=== PATIENT | male | born 1960 | race Caucasian/White ===

== ENCOUNTER 2024-06-17 20:38 | Inpatient (IN) ==
--- NOTE | 2024-06-17 21:15 | Emergency Department Note ---
Impression & Plan Acute respiratory failure with hypoxia, COPD exacerbation, Rhinovirus infection ED Provider Note NAME: ALYSHA [id number] LIONEL AGE: 63 SEX: M : 1960 ARRIVES VIA: Ambulance INFORMANT: Patient ED PROVIDER(S): Kelton Mendez MD CHIEF COMPLAINT: Acute respiratory distress, hypoxia. PLAN: Disposition: Admit MEDICAL DECISION MAKING: The patient is a pleasant 63-year-old gentleman, current fci inmate at [facility] with a past medical history of COPD who presents to the emergency department via EMS for acute respiratory failure which became acutely worse today in the setting of having worsening cough and congestion over the past several weeks. Patient reports bringing up thick discolored sputum intermittently. Denies any fevers. He denies any nausea, vomiting or diarrhea. Per EMS report on medical command with this provider, the patient was in acute respiratory distress with labored breathing with diffuse wheezes bilaterally and was noted to be in the mid 80s on 100% nonrebreather. He had been given nebulizer treatments repeatedly and Solu-Medrol but required placement on CPAP by EMS for stabilization. Upon arrival the patient was transitioned to Bipap and continued to have improved work of breathing. On evaluation the patient is uncomfortable no acute distress, afebrile with heart in the 110s and vital signs otherwise stable on BPAP. He appears clinically dry. He has improved air movement bilaterally compared to EMS report. Scant intermittent wheezes are noted. EKG without overt acute ischemia. CXR negative for acute cardiopulmonary process per my personal preliminary review/interpretation. WBC, H/H and platelets within normal limits. Chemistry without metabolic acidosis. Electrolytes and LFTs without significant abnormality. HS troponin 3.5, within normal limits. Procalcitonin is not elevated. CTA of the chest was performed and report is pending. Respiratory BioFire was pending. Given the patient's acute respiratory failure requiring BiPAP due to suspected COPD flare the patient does agree with plan for admission for further management. Case was discussed with Dr. Medrano, [facility] hospitalist, who will evaluate the patient for admission. CTA of the chest was subsequently negative for PE. Bronchial wall thickening and severe pulmonary edema as described. Question basilar subpleural focal atelectasis/consolidation is noted. Respiratory BioFire was positive for enterovirus/rhinovirus. Further management per admitting team. Triage Nursing notes reviewed and agree them. Prior/external medical records reviewed Vital Signs: reviewed Differential diagnosis: Reactive airway disease, pneumonia, pneumothorax, COPD, CHF, infections, cardiac ischemia, pulmonary embolism, musculoskeletal, gastrointestinal, as well as other pathologies. ER treatment provided: See below. Diagnostics interpreted by me: ECG: Sinus tachycardia, 112 bpm, no ectopy, no overt ST elevation or depression, QTc 434, QRS 68. Cardiac Monitoring: An order for continuous cardiac monitoring was placed and demonstrated Sinus tachycardia, 112 bpm, no ectop Laboratory studies: See below Imaging studies: See below Consultation(s): Case was discussed with Dr. Medrano, [facility] hospitalist, who will evaluate the patient for admission. HPI: The patient is a pleasant 63-year-old gentleman, current fci inmate at [facility] with a past medical history of COPD who presents to the emergency department via EMS for acute respiratory failure which became acutely worse today in the setting of having worsening cough and congestion over the past several weeks. Patient reports bringing up thick discolored sputum intermittently. Denies any fevers. He denies any nausea, vomiting or diarrhea. Per EMS report on medical command with this provider, the patient was in acute respiratory distress with labored breathing with diffuse wheezes bilaterally and was noted to be in the mid 80s on 100% nonrebreather. He had been given nebulizer treatments repeatedly and Solu-Medrol but required placement on CPAP by EMS for stabilization. Upon arrival the patient was transitioned to Bipap and continued to have improved work of breathing. ROS: See above HPI for pertinent positives & negatives. A total of 10 systems reviewed and were otherwise negative. VITALS:See Below PHYSICAL EXAMINATION: GENERAL: Awake, alert, uncomfortable appearing, in no distress HENT: Normocephalic, atraumatic. Oropharynx with dry mucous membranes and otherwise unremarkable. EYES: Normal conjunctiva. Sclera non-icteric. NECK: Supple. No nuchal rigidity. FROM. No JVD. RESPIRATORY: Intermittent wheezes bilaterally and otherwise clear to auscultation. CARDIAC: Tachycardic rate, normal rhythm. Extremities warm and well perfused. Pulses equal. ABDOMEN: Soft, non-distended. No tenderness to palpation. No rebound or guarding. No masses. MUSCULOSKELETAL: Chest examination reveals no tenderness. The back is symmetrical on inspection without obvious abnormality. There is no CVA tenderness to palpation. No joint edema. LOWER EXTREMITIES: Calves are equal size bilaterally and non-tender. No edema. No discoloration. NEURO: Normal sensorium. No sensory or motor deficits noted. SKIN: No rash or jaundice noted. ED COURSE: Critical Care: I have personally spent greater than 45 minutes of critical care time in the direct management of this patient. This includes bedside care, interpretation of diagnostic studies, and testing, discussion with consultants, patient, and family members, and other required patient management activities. This 45 minutes is in excess of all separately billable procedures. Kelton Mendez MD Past Med/Surg History Problem List (Updated 06/18/24 @ 16:25 by Kelton Mendez MD) Rhinovirus infection (Acute) Acute respiratory failure with hypoxia (Acute) COPD exacerbation (Acute) Social History Smoking Status: Former smoker Tobacco Type: Cigarettes Second Hand Exposure: No; Do You Dip or Chew Tobacco: No; Tobacco Cessation Education Requested by Patient: No Hx Alcohol Use: No Hx Substance Use: No Preferred Language: Sinhala Communication Ability: Unable Evp And Chief Operating Officer Required: No Beliefs That Will Affect Care: None Current Living Situation: Other Current Living Situation Comment: [facility] Other Information That Helps Us Care for You: No Feels Safe at Home: Yes Safety Concerns: Feels Safe At This Time Assistive Devices: Denture - Upper and Glasses Allergies Allergies Allergy/AdvReac Type Severity Reaction Status Date / Time haloperidol [From Haldol] Allergy Difficulty Verified 11/13/23 02:34 Breathing penicillin G benzathine Allergy Unknown Verified 11/13/23 02:52 sodium chloride Allergy Unknown Verified 11/13/23 02:52 [From Cameron Nasal] Home Meds Home Medications Medication Instructions Recorded Confirmed albuterol sulfate 90 mcg/actuation 2 puff inhalation QID PRN 11/13/23 06/18/24 aerosol inhaler Shortness Of Breath amlodipine 10 mg tablet 10 mg PO HS 11/13/23 06/18/24 aspirin 81 mg chewable tablet 81 mg PO HS 11/13/23 06/18/24 fluticasone 250 mcg-salmeterol 50 1 inh inhalation BID 11/13/23 06/18/24 mcg/dose blistr powdr for inhalation hydrochlorothiazide 25 mg tablet 25 mg PO QPM 11/13/23 06/18/24 ropinirole 1 mg tablet 1 mg PO HS 11/13/23 06/18/24 umeclidinium 62.5 mcg/actuation 1 inh inhalation DAILY 11/13/23 06/18/24 blister powder for inhalation (Incruse Ellipta) amantadine HCl 100 mg capsule 100 mg PO HS 06/18/24 06/18/24 azithromycin 250 mg tablet 250 mg PO DAILY 06/18/24 06/18/24 citalopram 10 mg tablet 10 mg PO HS 06/18/24 06/18/24 prednisone 10 mg tablet 50 mg PO DAILY 06/18/24 06/18/24 Results & Data (ED) Vital Signs Vital Signs - 24 hr 06/17/24 20:56 06/17/24 21:00 06/17/24 21:03 Temperature Temperature Source Pulse Rate 114 H 115 H Pulse Rate [Left] Pulse Rate from SpO2 Sensor 240 H Pulse Rhythm Pulse Rhythm [Left] Pulse Strength [Left] Respiratory Rate 20 Respiratory Effort / Characteristics Accessory Muscle Use Respiratory Depth Respiratory Pattern Blood Pressure 114/87 Blood Pressure [Right Arm] Blood Pressure Mean 96 Blood Pressure Mean [Right Arm] Blood Pressure Position [Right Arm] Pulse Oximetry 93 Oxygen Delivery Method Fraction of Inspired Oxygen Sepsis Recent Fever Within 48 Hours Sepsis New/Unexplained Change in Mental Status Sepsis Action Taken by Nursing 06/17/24 21:03 06/17/24 21:06 06/17/24 21:12 Temperature 36.6 C Temperature Source Axillary Pulse Rate 115 H Pulse Rate [Left] Pulse Rate from SpO2 Sensor Pulse Rhythm Pulse Rhythm [Left] Pulse Strength [Left] Respiratory Rate 29 H 18 Respiratory Effort / Characteristics Spontaneous Accessory Muscle Use Spontaneous Respiratory Depth Shallow Normal Respiratory Pattern Regular Blood Pressure 114/87 Blood Pressure [Right Arm] Blood Pressure Mean 96 Blood Pressure Mean [Right Arm] Blood Pressure Position [Right Arm] Pulse Oximetry 97 95 95 Oxygen Delivery Method CPAP CPAP Fraction of Inspired Oxygen 50 Sepsis Recent Fever Within 48 Hours No Sepsis New/Unexplained Change in Mental Status No Sepsis Action Taken by Nursing Physician Notified 06/17/24 21:18 06/17/24 21:23 06/17/24 21:27 Temperature Temperature Source Pulse Rate 113 H 112 H Pulse Rate [Left] Pulse Rate from SpO2 Sensor 230 H 227 H Pulse Rhythm Pulse Rhythm [Left] Pulse Strength [Left] Respiratory Rate 15 16 Respiratory Effort / Characteristics Respiratory Depth Respiratory Pattern Blood Pressure 114/69 120/95 120/95 Blood Pressure [Right Arm] Blood Pressure Mean 84 107 103 Blood Pressure Mean [Right Arm] Blood Pressure Position [Right Arm] Pulse Oximetry 97 96 Oxygen Delivery Method Fraction of Inspired Oxygen Sepsis Recent Fever Within 48 Hours Sepsis New/Unexplained Change in Mental Status Sepsis Action Taken by Nursing 06/17/24 21:30 06/17/24 22:00 06/17/24 22:24 Temperature Temperature Source Pulse Rate 107 H 107 H Pulse Rate [Left] Pulse Rate from SpO2 Sensor 138 H 106 H Pulse Rhythm Pulse Rhythm [Left] Pulse Strength [Left] Respiratory Rate 12 15 Respiratory Effort / Characteristics Respiratory Depth Respiratory Pattern Blood Pressure 125/94 129/97 134/101 H Blood Pressure [Right Arm] Blood Pressure Mean 99 107 112 Blood Pressure Mean [Right Arm] Blood Pressure Position [Right Arm] Pulse Oximetry 93 98 Oxygen Delivery Method Fraction of Inspired Oxygen Sepsis Recent Fever Within 48 Hours Sepsis New/Unexplained Change in Mental Status Sepsis Action Taken by Nursing 06/17/24 22:30 06/17/24 22:30 06/17/24 22:30 Temperature Temperature Source Pulse Rate Pulse Rate [Left] Pulse Rate from SpO2 Sensor Pulse Rhythm Pulse Rhythm [Left] Pulse Strength [Left] Respiratory Rate Respiratory Effort / Characteristics Respiratory Depth Respiratory Pattern Blood Pressure 137/107 H 137/107 H 137/107 H Blood Pressure [Right Arm] Blood Pressure Mean 113 113 113 Blood Pressure Mean [Right Arm] Blood Pressure Position [Right Arm] Pulse Oximetry Oxygen Delivery Method Fraction of Inspired Oxygen Sepsis Recent Fever Within 48 Hours Sepsis New/Unexplained Change in Mental Status Sepsis Action Taken by Nursing 06/17/24 22:54 06/17/24 23:03 06/17/24 23:30 Temperature Temperature Source Pulse Rate 98 H 97 H Pulse Rate [Left] 98 H Pulse Rate from SpO2 Sensor 97 H 98 H Pulse Rhythm Pulse Rhythm [Left] Regular Pulse Strength [Left] Normal Respiratory Rate 17 19 24 Respiratory Effort / Characteristics Non-Labored Spontaneous Respiratory Depth Normal Respiratory Pattern Regular Blood Pressure 142/102 H 135/102 H Blood Pressure [Right Arm] 136/97 Blood Pressure Mean 115 113 Blood Pressure Mean [Right Arm] 110 Blood Pressure Position [Right Arm] Pulse Oximetry 98 95 96 Oxygen Delivery Method BiPAP Fraction of Inspired Oxygen Sepsis Recent Fever Within 48 Hours Sepsis New/Unexplained Change in Mental Status Sepsis Action Taken by Nursing 06/17/24 23:30 06/18/24 00:00 06/18/24 00:57 Temperature Temperature Source Pulse Rate 98 H 93 H Pulse Rate [Left] 95 H Pulse Rate from SpO2 Sensor Pulse Rhythm Regular Pulse Rhythm [Left] Regular Pulse Strength [Left] Normal Respiratory Rate 20 Respiratory Effort / Characteristics Non-Labored Spontaneous Respiratory Depth Normal Respiratory Pattern Regular Blood Pressure Blood Pressure [Right Arm] 130/96 Blood Pressure Mean Blood Pressure Mean [Right Arm] 107 Blood Pressure Position [Right Arm] Lying Pulse Oximetry 96 97 Oxygen Delivery Method BiPAP BiPAP Fraction of Inspired Oxygen Sepsis Recent Fever Within 48 Hours Sepsis New/Unexplained Change in Mental Status Sepsis Action Taken by Nursing 06/18/24 01:00 Temperature Temperature Source Pulse Rate Pulse Rate [Left] 92 H Pulse Rate from SpO2 Sensor Pulse Rhythm Pulse Rhythm [Left] Regular Pulse Strength [Left] Normal Respiratory Rate 20 Respiratory Effort / Characteristics Non-Labored Spontaneous Respiratory Depth Normal Respiratory Pattern Regular Blood Pressure Blood Pressure [Right Arm] 131/96 Blood Pressure Mean Blood Pressure Mean [Right Arm] 107 Blood Pressure Position [Right Arm] Lying Pulse Oximetry 95 Oxygen Delivery Method BiPAP Fraction of Inspired Oxygen Sepsis Recent Fever Within 48 Hours Sepsis New/Unexplained Change in Mental Status Sepsis Action Taken by Nursing Laboratory Data Attestation: I reviewed the patient's lab results. 06/18/24 05:35 06/18/24 05:35 Lab Results 06/17/24 06/17/24 06/17/24 Range/Units 20:50 23:31 23:41 WBC 9.31 (4.8-10.8) K/ul RBC 5.02 (4.70-6.10) M/uL Hgb 16.0 (14.0-18.0) g/dl Hct 46.5 (42.0-52.0) % MCV 92.6 (80.0-100.0) fL MCH 31.9 (25.0-34.0) pg MCHC 34.4 (32.0-36.0) g/dL RDW Std Deviation 41.6 (36.4-46.3) fL RDW Coeff of Oumou 12.1 (11.5-14.5) % Plt Count 203 (130-400) K/uL MPV 9.4 (9.4-12.4) fL Immature Gran % (Auto) 0.4 % Neut % (Auto) 74.6 % Lymph % (Auto) 10.3 % Garland % (Auto) 5.3 % Eos % (Auto) 8.4 % Baso % (Auto) 1.0 % Neut # (Auto) 6.95 H (1.40-6.50) K/uL Lymph # (Auto) 0.96 L (1.20-3.40) K/uL Garland # (Auto) 0.49 (0.11-0.59) K/uL Eos # (Auto) 0.78 H (0.00-0.50) K/uL Baso # (Auto) 0.09 (0.00-0.20) K/uL Immature Gran # (Auto) 0.04 (0.01-0.20) K/uL VBG pH 7.37 (7.36-7.41) VBG pCO2 44 (38-50) mmHg VBG pO2 57 mmHg VBG HCO3 25 mmol/L VBG O2 Saturation 88.4 % VBG Base Excess -0.2 mEq/L Sodium 139 (136-145) mmol/L Potassium 3.7 (3.5-5.1) mmol/L Chloride 104 (98-107) mmol/L Carbon Dioxide 25 (21-32) mmol/L Anion Gap 10 (3-11) BUN 21 (6-23) mg/dl Creatinine 1.12 (0.6-1.4) mg/dl Est Cr Clr Drug Dosing 79.6 ml/min Est GFR ( Amer) 80.0 ml/min Est GFR (Non-Af Amer) 69.0 ml/min BUN/Creatinine Ratio 18.8 (10-20) Glucose 204 H (70-99(Fasting)) mg/dl Lactate 2.5 H* (0.4-2.0) mmol/L Calcium 10.1 (8.6-10.3) mg/dl Magnesium 1.9 (1.7-2.4) mg/dl Total Bilirubin 0.8 (0.2-1.0) mg/dl Direct Bilirubin 0.2 (0-0.2) mg/dl AST 11 L (13-39) U/L ALT 10 (7-52) U/L Alkaline Phosphatase 90 (34-104) U/L Troponin I High Sens 3.5 (0-20) pg/ml Total Protein 6.7 (6.0-8.3) gm/dl Albumin 4.2 (3.4-5.0) gm/dl Procalcitonin < 0.02 (0-0.5) ng/ml Adenovirus (PCR) Not Detected (NotDetected) B. pertussis DNA (PCR) Not Detected (NotDetected) B.parapertussis DNA PCR Not Detected (NotDetected) C. pneumoniae DNA (PCR) Not Detected (NotDetected) Coronavirus OC43 (PCR) Not Detected (NotDetected) Coronavirus HKU1 (PCR) Not Detected (NotDetected) Coronavirus 229E (PCR) Not Detected (NotDetected) SARS-CoV-2 (PCR) Not Detected (NotDetected) Coronavirus NL63 (PCR) Not Detected (NotDetected) Human Metapneumovir PCR Not Detected (NotDetected) Influenza Type A (PCR) Not Detected (NotDetected) Influenza Type B (PCR) Not Detected (NotDetected) M. pneumoniae (PCR) Not Detected (NotDetected) Parainfluenza 1 (PCR) Not Detected (NotDetected) Parainfluenza 2 (PCR) Not Detected (NotDetected) Parainfluenza 3 (PCR) Not Detected (NotDetected) Parainfluenza 4 (PCR) Not Detected (NotDetected) RSV (PCR) Not Detected (NotDetected) Entero/Rhino (PCR) DETECTED A (NotDetected) Administered Medications Albuterol (Albut/Ipratrop 3mg/0.5mg Neb 3 Ml Vial) 3 ml NEB QIDR [facility]; Protocol Stop: 07/18/24 06:59 Last Admin: 06/18/24 15:37 Dose: 3 ml Documented By: Admin: 06/18/24 11:00 Dose: 3 ml Documented By: Admin: 06/18/24 07:25 Dose: 3 ml Documented By: EM Azithromycin (Azithromycin 250 Mg Tab) 250 mg PO DAILY [facility] Stop: 06/25/24 08:59 Last Admin: 06/18/24 10:29 Dose: 250 mg Documented By: AM Enoxaparin Sodium (Enoxaparin Inj 40 Mg/0.4 Ml Syr) 40 mg SQ Q24H PATY Stop: 07/18/24 08:59 Last Admin: 06/18/24 10:28 Dose: 40 mg Documented By: AM Fluticasone/Vilanterol (Fluticasone/Vilanterol 100/25mcg 14 Puffs/Inhaler) 1 puffs INH DAILY PATY Stop: 07/18/24 08:59 Last Admin: 06/18/24 10:30 Dose: 1 puffs Documented By: AM Methylprednisolone 40 mg/ (Syringe) 0.64 mls @ 1.5 mls/min IV Q8H PATY Stop: 07/18/24 05:59 Last Admin: 06/18/24 14:31 Dose: 1.5 mls/min Documented By: Admin: 06/18/24 05:51 Dose: 1.5 mls/min Documented By: TAHMINA Thiamine HCl (Thiamine Hcl 100 Mg Tab) 200 mg PO QAM PATY Stop: 06/24/24 09:01 Last Admin: 06/18/24 10:29 Dose: 200 mg Documented By: SOPHIA Umeclidinium Ballinger (Umeclidinium Ballinger 62.5mcg/Blister 7 Puffs/Inhaler) 1 puffs INH DAILY PATY Stop: 07/18/24 08:59 Last Admin: 06/18/24 10:30 Dose: 1 puffs Documented By: AM Discontinued Medications Albuterol (Albut/Ipratrop 3mg/0.5mg Neb 3 Ml Vial) 3 ml NEB NOW STA; Protocol Stop: 06/18/24 03:34 Last Admin: 06/18/24 03:59 Dose: 3 ml Documented By: TED Sodium Chloride (Nss) 1,000 mls @ 999 mls/hr IV .Q1H1M ONE Stop: 06/17/24 22:12 Last Infusion: 06/17/24 23:23 Dose: Infused Documented By: Admin: 06/17/24 21:34 Dose: 999 mls/hr Documented By: ANI Sodium Chloride (Nss) 1,000 mls @ 100 mls/hr IV .Q10H PATY Stop: 06/18/24 13:22 Last Infusion: 06/18/24 14:03 Dose: Infused Documented By: Admin: 06/18/24 03:42 Dose: 100 mls/hr Documented By: TAHMINA Ioversol (Optiray 320 125ml) 125 ml IV ONCE ONE Stop: 06/17/24 23:21 Last Admin: 06/17/24 23:20 Dose: 118 ml Documented By: EMILIANO Imaging Data Radiologist's Impression: Chest X-Ray 06/17/24 21:12 XR chest 1V portable HISTORY: Sepsis COMPARISON: Chest 11/13/2023. FINDINGS: No pneumothorax. No pleural effusions. The heart is normal in size. There are old, healed bilateral rib fractures. No evidence for pulmonary edema. Right basilar linear densities favor subsegmental atelectasis or scarring. Otherwise, no focal lung consolidations to suggest a pneumonia. Mild emphysema again noted. IMPRESSION: No acute process. ACT 112: Negative or not required by law. Electronically signed by: Jose Alberto Forde M.D. 06/18/2024 7:42 AM Chest CTA 06/17/24 21:12 Exam(s): CTA CHEST IV Amt: 118 ML OPTIRAY 320 EXAM: CT Angiography Chest With Intravenous Contrast CLINICAL HISTORY: Reason for exam: sob, copd, hypoxia, r/o PE. TECHNIQUE: Axial computed tomographic angiography images of the chest with intravenous contrast. CTDI is 19 mGy and DLP is 736 mGy-cm. Automated exposure control was utilized for the study. A dose lowering technique was utilized adhering to the principles of ALARA. MIP reconstructed images were created and reviewed. COMPARISON: CTA chest: 11/13/2023 FINDINGS: Diagnostic sensitivity of the exam is reduced by motion artifact. Pulmonary arteries: No abnormal intraluminal filling defects/pulmonary embolism identified within the opacified pulmonary arteries. Aorta: No acute findings. An ectatic ascending aorta: 4.0 cm in diameter. Atherosclerotic tortuosity Lungs: Central airways are patent. Bilateral diffuse bronchial wall thickening. Moderately severe pulmonary emphysema. Posteriorly right lower lung lobe subpleural mild atelectatic changes. No mass. No consolidation. Pleural space: Unremarkable. No significant effusion. No pneumothorax. Heart: Unremarkable. No cardiomegaly. No significant pericardial effusion. No evidence of RV dysfunction. Bones/joints: No acute fracture. No dislocation. Posteriorly right 10th rib old displaced fracture with associated pleural thickening. Degenerative spondylitic changes. Soft tissues: Unremarkable. Patulous dilated esophagus. A small hiatal hernia. Lymph nodes: Unremarkable. No enlarged lymph nodes. Other findings: Bilateral LT>RT polycystic kidney disease.. IMPRESSION: No evidence of pulmonary embolism. An ectatic ascending aorta. No aortic dissection. Bilateral bronchial wall thickening. Moderately severe pulmonary emphysema. Posteriorly right basilar subpleural focal atelectasis/consolidation. . Electronically signed by: Opal Deluna MD, DABR 06/18/24 01:09 AM Chest X-Ray 06/17/24 21:12 XR chest 1V portable HISTORY: Sepsis COMPARISON: Chest 11/13/2023. FINDINGS: No pneumothorax. No pleural effusions. The heart is normal in size. There are old, healed bilateral rib fractures. No evidence for pulmonary edema. Right basilar linear densities favor subsegmental atelectasis or scarring. Otherwise, no focal lung consolidations to suggest a pneumonia. Mild emphysema again noted. IMPRESSION: No acute process. ACT 112: Negative or not required by law. Electronically signed by: Jose Alberto Forde M.D. 06/18/2024 7:42 AM Discharge Plan Visit Data Chief Complaint: Respiratory Problems Stated Complaint: Respiratory Distress ED Provider: Kelton Mendez Discharge Problem: Acute respiratory failure with hypoxia, COPD exacerbation, Rhinovirus infection Patient Disposition: Admitted As Inpatient Discharge Instructions Interventions: ED Discharge Assessment Last Done: 06/18/24 02:53
[2024-06-17 21:33] LABS: Basophils # (auto) 0.09 K/uL (0.00-0.20); Eosinophils # (auto) 0.78 K/uL (0.00-0.50); Eosinophils % (auto) 8.4 %; Hematocrit (blood only) 46.5 % (42.0-52.0); Immature Granulocytes # (auto) 0.04 K/uL (0.01-0.20); Immature Granulocytes % (auto) 0.4 %; Lymphocytes # (auto) 0.96 K/uL (1.20-3.40); Lymphocytes % (auto) 10.3 %; Mean Corpuscular Hemoglobin 31.9 pg (25.0-34.0); Mean Corpuscular Hgb Conc 34.4 g/dL (32.0-36.0); Mean Corpuscular Volume 92.6 fL (80.0-100.0); Mean Platelet Volume 9.4 fL (9.4-12.4); Monocytes # (auto) 0.49 K/uL (0.11-0.59); Monocytes % (auto) 5.3 %; Neutrophils # (auto) 6.95 K/uL (1.40-6.50); Neutrophils % (auto) 74.6 %; Platelet Count 203 K/uL (130-400); RDW Coefficient of Variation 12.1 % (11.5-14.5); RDW Standard Deviation 41.6 fL (36.4-46.3); Red Blood Count 5.02 M/uL (4.70-6.10); White Blood Count 9.31 K/ul (4.8-10.8)
[2024-06-17] MEDS: SODIUM CHLORIDE 0.9% 1,000 ML IV ONE (21:34)
[2024-06-17 21:43] LABS: Base Excess VBG -0.2 mEq/L; HCO3 VBG 25 mmol/L; Oxygen Saturation VBG 88.4 %; PCO2 VBG 44 mmHg (38-50); PO2 VBG 57 mmHg; pH VBG 7.37 (7.36-7.41)
[2024-06-17 21:51] LABS: Albumin Level 4.2 gm/dl (3.4-5.0); BUN Creatinine Ratio 18.8 (10-20); Bilirubin Direct 0.2 mg/dl (0-0.2); Bilirubin,Total 0.8 mg/dl (0.2-1.0); Calcium 10.1 mg/dl (8.6-10.3); Creatinine Clr Calc Pharmacy 79.6 ml/min; Magnesium 1.9 mg/dl (1.7-2.4); Potassium 3.7 mmol/L (3.5-5.1); Total Protein 6.7 gm/dl (6.0-8.3)
[2024-06-17 21:58] LABS: Troponin I High Sensitivity 3.5 pg/ml (0-20)
[2024-06-17] MEDS: OPTIRAY 320 125ml IV ONE (23:20)
--- NOTE | 2024-06-18 01:11 | CT Scan Report ---
Exam(s): CTA CHEST IV Amt: 118 ML OPTIRAY 320 EXAM: CT Angiography Chest With Intravenous Contrast CLINICAL HISTORY: Reason for exam: sob, copd, hypoxia, r/o PE. TECHNIQUE: Axial computed tomographic angiography images of the chest with intravenous contrast. CTDI is 19 mGy and DLP is 736 mGy-cm. Automated exposure control was utilized for the study. A dose lowering technique was utilized adhering to the principles of ALARA. MIP reconstructed images were created and reviewed. COMPARISON: CTA chest: 11/13/2023 FINDINGS: Diagnostic sensitivity of the exam is reduced by motion artifact. Pulmonary arteries: No abnormal intraluminal filling defects/pulmonary embolism identified within the opacified pulmonary arteries. Aorta: No acute findings. An ectatic ascending aorta: 4.0 cm in diameter. Atherosclerotic tortuosity Lungs: Central airways are patent. Bilateral diffuse bronchial wall thickening. Moderately severe pulmonary emphysema. Posteriorly right lower lung lobe subpleural mild atelectatic changes. No mass. No consolidation. Pleural space: Unremarkable. No significant effusion. No pneumothorax. Heart: Unremarkable. No cardiomegaly. No significant pericardial effusion. No evidence of RV dysfunction. Bones/joints: No acute fracture. No dislocation. Posteriorly right 10th rib old displaced fracture with associated pleural thickening. Degenerative spondylitic changes. Soft tissues: Unremarkable. Patulous dilated esophagus. A small hiatal hernia. Lymph nodes: Unremarkable. No enlarged lymph nodes. Other findings: Bilateral LT>RT polycystic kidney disease.. IMPRESSION: No evidence of pulmonary embolism. An ectatic ascending aorta. No aortic dissection. Bilateral bronchial wall thickening. Moderately severe pulmonary emphysema. Posteriorly right basilar subpleural focal atelectasis/consolidation. . Electronically signed by: Opal Deluna MD, JUANAR 06/18/24 01:09 AM
[2024-06-18 01:28] LABS: Adenovirus PCR Not Detected (NotDetected); Bordetella parapertussis PCR Not Detected (NotDetected); Bordetella pertussis PCR Not Detected (NotDetected); Chlamydia pneumoniae PCR Not Detected (NotDetected); Coronavirus 229E PCR Not Detected (NotDetected); Coronavirus CoV-2 (COVID19)PCR Not Detected (NotDetected); Coronavirus HKU1 PCR Not Detected (NotDetected); Coronavirus NL63 PCR Not Detected (NotDetected); Coronavirus OC43PCR Not Detected (NotDetected); Human Metapneumovirus PCR Not Detected (NotDetected); Influenza A PCR Not Detected (NotDetected); Influenza B PCR Not Detected (NotDetected); Mycoplasma pneumoniae PCR Not Detected (NotDetected); Parainfluenza Virus 1 PCR Not Detected (NotDetected); Parainfluenza Virus 2 PCR Not Detected (NotDetected); Parainfluenza Virus 3 PCR Not Detected (NotDetected); Parainfluenza Virus 4 PCR Not Detected (NotDetected); Respiratory Syncytial VirusPCR Not Detected (NotDetected); Rhinovirus/Enterovirus PCR DETECTED (NotDetected)
--- NOTE | 2024-06-18 02:04 | History & Physical Report ---
Date of Service June 18, 2024 Assessment & Plan (1) COPD exacerbation: Plan: 63-year-old male coming from [facility] with past medical history significant for COPD, asthma, restless leg syndrome, unspecified bipolar disorder, schizophrenia, hypertension, history of inguinal hernia,history of hepatitis C, who presents because of shortness of breath. Patient states having shortness of breath going on for last 2 weeks. Coughing and spitting up stuff. Using a lot of albuterol inhalers. Today was having a lot of trouble breathing and [facility] gave neb treatments and Solu-Medrol and called EMS .For EMS was saturating only in 80's on 100% nonrebreather and was placed on CPAP and brought to the ER. Currently in the ER patient seems comfortable on BiPAP. Able to give his history. Denies any headache. States vision is okay. No earaches. Has some runny nose. Is coughing up a lot. Denies fevers. Feels his chest is very tight like someone sitting on it. No nausea. No abdominal pain. Normal bowel and bladder movements. COPD exacerbation Currently requiring BiPAP Seems comfortable on BiPAP VBG okay Will continue with DuoNebs [id number] and as needed IV Solu-Medrol 40 mg 3 times daily Complete the course of azithromycin Close monitor CAT scan showing possible focal atelectasis/consolidation in right basilar region Procalcitonin is negative Enterorhinovirus Possible cause of COPD exacerbation Droplet precautions Supportive care Elevated lactic acid Lactic acid 2.5 Mostly from hypoxia Will follow repeat levels Chest tightness mostly from copd will follow serial ce Restless leg syndrome On ropinirole Hypertension On amlodipine and hydrochlorothiazide Will monitor History of bipolar disorder Schizophrenia Continue home medications DVT prophylaxis Lovenox Disposition Telemetry Full code History of Present Illness Chief Complaint: Shortness of breath Primary Care Provider: TIFFANIE Carrillo 63-year-old male coming from [facility] with past medical history significant for COPD, asthma, restless leg syndrome, unspecified bipolar disorde r, schizophrenia, hypertension, history of inguinal hernia,history of hepatitis C, who presents because of shortness of breath. Patient states having shortness of breath going on for last 2 weeks. Coughing and spitting up stuff. Using a lot of albuterol inhalers. Today was having a lot of trouble breathing and [facility] gave neb treatments and Solu-Medrol and called EMS .For EMS was saturating only in 80's on 100% nonrebreather and was placed on CPAP and brought to the ER. Currently in the ER patient seems comfortable on BiPAP. Able to give his history. Denies any headache. States vision is okay. No earaches. Has some runny nose. Is coughing up a lot. Denies fevers. Feels his chest is very tight like someone sitting on it. No nausea. No abdominal pain. Normal bowel and bladder movements. Past medical history. As mentioned above Past surgical history. States he had some kind of chest surgery for his lungs. Social history. States he smoked 2 to 3 packs a day starting at age 15 and quit about 5 years ago. No alcohol use. Family history. Father had CABG and MS. Allergies Allergy/AdvReac Type Severity Reaction Status Date / Time haloperidol [From Haldol] Allergy Difficulty Verified 11/13/23 02:34 Breathing penicillin G benzathine Allergy Unknown Verified 11/13/23 02:52 sodium chloride Allergy Unknown Verified 11/13/23 02:52 [From [place] Nasal] Home Medications Medication Instructions Recorded Confirmed Type albuterol sulfate 90 mcg/actuation 2 puff inhalation QID PRN 11/13/23 06/18/24 History aerosol inhaler Shortness Of Breath amlodipine 10 mg tablet 10 mg PO HS 11/13/23 06/18/24 History aspirin 81 mg chewable tablet 81 mg PO HS 11/13/23 06/18/24 History fluticasone 250 mcg-salmeterol 50 1 inh inhalation BID 11/13/23 06/18/24 History mcg/dose blistr powdr for inhalation hydrochlorothiazide 25 mg tablet 25 mg PO QPM 11/13/23 06/18/24 History ropinirole 1 mg tablet 1 mg PO HS 11/13/23 06/18/24 History umeclidinium 62.5 mcg/actuation 1 inh inhalation DAILY 11/13/23 06/18/24 History blister powder for inhalation (Incruse Ellipta) amantadine HCl 100 mg capsule 100 mg PO HS 06/18/24 06/18/24 History azithromycin 250 mg tablet 250 mg PO DAILY 06/18/24 06/18/24 History citalopram 10 mg tablet 10 mg PO HS 09/20/24 09/20/24 History prednisone 10 mg tablet 50 mg PO DAILY 06/18/24 06/18/24 History Past Med/Surg History Problem List (Updated 06/18/24 @ 04:39 by Kelton Mendez MD) Acute respiratory failure with hypoxia (Acute) COPD exacerbation (Acute) Social History Smoking Status: Former smoker Tobacco Type: Cigarettes Second Hand Exposure: No; Do You Dip or Chew Tobacco: No; Tobacco Cessation Education Requested by Patient: No Hx Alcohol Use: No Hx Substance Use: No Preferred Language: Kazakh Communication Ability: Effective Ventilating Equipment Installer Required: No Beliefs That Will Affect Care: None Current Living Situation: Other Current Living Situation Comment: [employer] Other Information That Helps Us Care for You: No Feels Safe at Home: Yes Safety Concerns: Feels Safe At This Time Assistive Devices: Denture - Upper and Glasses Review of Systems Review of Systems: All systems reviewed & are unremarkable except as noted in HPI & below Physical Exam Physical Exam: General- Not in acute distress Head- atraumatic Eyes- PERRL. ENT- oropharynx clear Neck- supple, no JVD. Lungs- clear to auscultation b/l rhonchi and wheezing heard. Heart- regular rate and rhythm; no murmur, no gallop. Abdomen- normal bowel sounds, soft, nontender, no distension. Extremities- no pretibial edema, no erythema seen Neuro- alert, oriented PERRL, no facial palsy; no dysarthria; moves extremities Results & Data Results & Data Vital Signs (Past 12 Hours) Vital Signs Temp Pulse Pulse Resp BP BP Pulse Ox 06/18/24 01:00 92 H 20 131/96 95 06/18/24 00:57 93 H 06/18/24 00:00 95 H 20 130/96 97 06/17/24 23:30 98 H 96 06/17/24 23:30 98 H 24 136/97 96 06/17/24 23:03 97 H 19 135/102 H 95 06/17/24 22:54 98 H 17 142/102 H 98 06/17/24 22:30 137/107 H 06/17/24 22:30 137/107 H 06/17/24 22:30 137/107 H 06/17/24 22:24 107 H 15 134/101 H 98 06/17/24 22:00 107 H 12 129/97 93 06/17/24 21:30 125/94 06/17/24 21:27 112 H 16 120/95 96 06/17/24 21:23 120/95 06/17/24 21:18 113 H 15 114/69 97 06/17/24 21:12 95 06/17/24 21:06 18 95 06/17/24 21:03 36.6 C 115 H 29 H 114/87 97 06/17/24 21:00 115 H 20 114/87 93 06/17/24 20:56 114 H O2 Del Method FiO2 06/18/24 01:00 BiPAP 06/18/24 00:57 06/18/24 00:00 BiPAP 06/17/24 23:30 BiPAP 06/17/24 23:30 BiPAP 06/17/24 23:03 06/17/24 22:54 06/17/24 22:30 06/17/24 22:30 06/17/24 22:30 06/17/24 22:24 06/17/24 22:00 06/17/24 21:30 06/17/24 21:27 06/17/24 21:23 06/17/24 21:18 06/17/24 21:12 CPAP 06/17/24 21:06 50 06/17/24 21:03 CPAP 06/17/24 21:00 06/17/24 20:56 Diagnostic Findings Laboratory Results WBC 9.31 K/ul (4.8-10.8) 06/17/24 20:50 RBC 5.02 M/uL (4.70-6.10) 06/17/24 20:50 Hgb 16.0 g/dl (14.0-18.0) 06/17/24 20:50 Hct 46.5 % (42.0-52.0) 06/17/24 20:50 MCV 92.6 fL (80.0-100.0) 06/17/24 20:50 MCH 31.9 pg (25.0-34.0) 06/17/24 20:50 MCHC 34.4 g/dL (32.0-36.0) 06/17/24 20:50 RDW Std Deviation 41.6 fL (36.4-46.3) 06/17/24 20:50 RDW Coeff of [place]umou 12.1 % (11.5-14.5) 06/17/24 20:50 Plt Count 203 K/uL (130-400) 06/17/24 20:50 MPV 9.4 fL (9.4-12.4) 06/17/24 20:50 Immature Gran % (Auto) 0.4 % 06/17/24 20:50 Neut % (Auto) 74.6 % 06/17/24 20:50 Lymph % (Auto) 10.3 % 06/17/24 20:50 Butts % (Auto) 5.3 % 06/17/24 20:50 Eos % (Auto) 8.4 % 06/17/24 20:50 Baso % (Auto) 1.0 % 06/17/24 20:50 Neut # (Auto) 6.95 K/uL (1.40-6.50) H 06/17/24 20:50 Lymph # (Auto) 0.96 K/uL (1.20-3.40) L 06/17/24 20:50 Butts # (Auto) 0.49 K/uL (0.11-0.59) 06/17/24 20:50 Eos # (Auto) 0.78 K/uL (0.00-0.50) H 06/17/24 20:50 Baso # (Auto) 0.09 K/uL (0.00-0.20) 06/17/24 20:50 Immature Gran # (Auto) 0.04 K/uL (0.01-0.20) 06/17/24 20:50 VBG pH 7.37 (7.36-7.41) 06/17/24 20:50 VBG pCO2 44 mmHg (38-50) 06/17/24 20:50 VBG pO2 57 mmHg 06/17/24 20:50 VBG HCO3 25 mmol/L 06/17/24 20:50 VBG O2 Saturation 88.4 % 06/17/24 20:50 VBG Base Excess -0.2 mEq/L 06/17/24 20:50 Sodium 139 mmol/L (136-145) 06/17/24 20:50 Potassium 3.7 mmol/L (3.5-5.1) 06/17/24 20:50 Chloride 104 mmol/L (98-107) 06/17/24 20:50 Carbon Dioxide 25 mmol/L (21-32) 06/17/24 20:50 Anion Gap 10 (3-11) 06/17/24 20:50 BUN 21 mg/dl (6-23) 06/17/24 20:50 Creatinine 1.12 mg/dl (0.6-1.4) 06/17/24 20:50 Est Cr Clr Drug Dosing 79.6 ml/min 06/17/24 20:50 Est GFR ( Amer) 80.0 ml/min 06/17/24 20:50 Est GFR (Non-Af Amer) 69.0 ml/min 06/17/24 20:50 BUN/Creatinine Ratio 18.8 (10-20) 06/17/24 20:50 Glucose 204 mg/dl (70-99(Fasting)) H 06/17/24 20:50 Lactate 2.5 mmol/L (0.4-2.0) H* 06/17/24 23:31 Calcium 10.1 mg/dl (8.6-10.3) 06/17/24 20:50 Magnesium 1.9 mg/dl (1.7-2.4) 06/17/24 20:50 Total Bilirubin 0.8 mg/dl (0.2-1.0) 06/17/24 20:50 Direct Bilirubin 0.2 mg/dl (0-0.2) 06/17/24 20:50 AST 11 U/L (13-39) L 06/17/24 20:50 ALT 10 U/L (7-52) 06/17/24 20:50 Alkaline Phosphatase 90 U/L (34-104) 06/17/24 20:50 Troponin I High Sens 3.5 pg/ml (0-20) 06/17/24 20:50 Total Protein 6.7 gm/dl (6.0-8.3) 06/17/24 20:50 Albumin 4.2 gm/dl (3.4-5.0) 06/17/24 20:50 Procalcitonin < 0.02 ng/ml (0-0.5) 06/17/24 20:50 Adenovirus (PCR) Not Detected (NotDetected) 06/17/24 23:41 B. pertussis DNA (PCR) Not Detected (NotDetected) 06/17/24 23:41 B.parapertussis DNA PCR Not Detected (NotDetected) 06/17/24 23:41 C. pneumoniae DNA (PCR) Not Detected (NotDetected) 06/17/24 23:41 Coronavirus OC43 (PCR) Not Detected (NotDetected) 06/17/24 23:41 Coronavirus HKU1 (PCR) Not Detected (NotDetected) 06/17/24 23:41 Coronavirus 229E (PCR) Not Detected (NotDetected) 06/17/24 23:41 SARS-CoV-2 (PCR) Not Detected (NotDetected) 06/17/24 23:41 Coronavirus NL63 (PCR) Not Detected (NotDetected) 06/17/24 23:41 Human Metapneumovir PCR Not Detected (NotDetected) 06/17/24 23:41 Influenza Type A (PCR) Not Detected (NotDetected) 06/17/24 23:41 Influenza Type B (PCR) Not Detected (NotDetected) 06/17/24 23:41 M. pneumoniae (PCR) Not Detected (NotDetected) 06/17/24 23:41 Parainfluenza 1 (PCR) Not Detected (NotDetected) 06/17/24 23:41 Parainfluenza 2 (PCR) Not Detected (NotDetected) 06/17/24 23:41 Parainfluenza 3 (PCR) Not Detected (NotDetected) 06/17/24 23:41 Parainfluenza 4 (PCR) Not Detected (NotDetected) 06/17/24 23:41 RSV (PCR) Not Detected (NotDetected) 06/17/24 23:41 Entero/Rhino (PCR) DETECTED (NotDetected) A 06/17/24 23:41 Impressions Chest CTA 06/17/24 21:12 Exam(s): CTA CHEST IV Amt: 118 ML OPTIRAY 320 EXAM: CT Angiography Chest With Intravenous Contrast CLINICAL HISTORY: Reason for exam: sob, copd, hypoxia, r/o PE. TECHNIQUE: Axial computed tomographic angiography images of the chest with intravenous contrast. CTDI is 19 mGy and DLP is 736 mGy-cm. Automated exposure control was utilized for the study. A dose lowering technique was utilized adhering to the principles of ALARA. MIP reconstructed images were created and reviewed. COMPARISON: CTA chest: 11/13/2023 FINDINGS: Diagnostic sensitivity of the exam is reduced by motion artifact. Pulmonary arteries: No abnormal intraluminal filling defects/pulmonary embolism identified within the opacified pulmonary arteries. Aorta: No acute findings. An ectatic ascending aorta: 4.0 cm in diameter. Atherosclerotic tortuosity Lungs: Central airways are patent. Bilateral diffuse bronchial wall thickening. Moderately severe pulmonary emphysema. Posteriorly right lower lung lobe subpleural mild atelectatic changes. No mass. No consolidation. Pleural space: Unremarkable. No significant effusion. No pneumothorax. Heart: Unremarkable. No cardiomegaly. No significant pericardial effusion. No evidence of RV dysfunction. Bones/joints: No acute fracture. No dislocation. Posteriorly right 10th rib old displaced fracture with associated pleural thickening. Degenerative spondylitic changes. Soft tissues: Unremarkable. Patulous dilated esophagus. A small hiatal hernia. Lymph nodes: Unremarkable. No enlarged lymph nodes. Other findings: Bilateral LT>RT polycystic kidney disease.. IMPRESSION: No evidence of pulmonary embolism. An ectatic ascending aorta. No aortic dissection. Bilateral bronchial wall thickening. Moderately severe pulmonary emphysema. Posteriorly right basilar subpleural focal atelectasis/consolidation. . Electronically signed by: Opal Deluna MD, DABR 06/18/24 01:09 AM ECG Additional Comments: ECG. Sinus tachycardia 112. Left axis deviation. QTc 434 Code Status & VTE Plan VTE Prophylaxis Plan VTE Prophylaxis will be ordered: Yes
[2024-06-18] MEDS ORDERED: POLYETHYLENE (MIRALAX) 17 GM PACK PO PRN (03:23)
[2024-06-18] MEDS ORDERED: NITROGLYCERIN SL 0.4 MG/TAB TAB SL PRN (03:23)
[2024-06-18] MEDS ORDERED: ACETAMINOPHEN 325 MG TAB PO PRN (03:23)
[2024-06-18] MEDS ORDERED: ALBUTEROL HFA 8 GM INHALER INH PRN (03:23)
[2024-06-18] MEDS ORDERED: ALBUT/IPRATROP 3MG/0.5MG NEB 3 ML VIAL NEB PRN (03:23)
[2024-06-18 03:31] LABS: Appearance Urine Clear (Clear); Bilirubin Urine Negative (Negative); Blood Urine Negative (Negative); Color Urine Yellow; Glucose Urine UA Negative (Negative); Ketones Urine Negative (Negative); Leukocyte Esterase Urine Negative (Negative); Nitrite Urine Negative (Negative); Protein Urine Negative (Negative); Urobilinogen Urine Negative (Negative); pH Urine 5.5 (4.5-7.5)
[2024-06-18] MEDS: SODIUM CHLORIDE 0.9% 1,000 ML IV SCH (03:42)
[2024-06-18] MEDS: ALBUT/IPRATROP 3MG/0.5MG NEB 3 ML VIAL NEB STA (03:59)
[2024-06-18] MEDS: methylPREDNISolone 40 MG in SYRINGE 0 ML IV SCH (05:51)
[2024-06-18 05:52] LABS: Hematocrit (blood only) 46.8 % (42.0-52.0); Hemoglobin 15.6 g/dl (14.0-18.0); Mean Corpuscular Hemoglobin 31.3 pg (25.0-34.0); Mean Corpuscular Hgb Conc 33.3 g/dL (32.0-36.0); Mean Platelet Volume 9.2 fL (9.4-12.4); Platelet Count 182 K/uL (130-400); RDW Standard Deviation 41.4 fL (36.4-46.3); Red Blood Count 4.98 M/uL (4.70-6.10); White Blood Count 4.38 K/ul (4.8-10.8)
[2024-06-18 06:04] LABS: BUN Creatinine Ratio 19.6 (10-20); Calcium 10.4 mg/dl (8.6-10.3); Creatinine Clr Calc Pharmacy 83.4 ml/min; Est GFR (African American) 84.6 ml/min
[2024-06-18 06:43] LABS: Basophils # (auto) 0.01 K/uL (0.00-0.20); Basophils % (auto) 0.2 %; Immature Granulocytes # (auto) 0.01 K/uL (0.01-0.20); Immature Granulocytes % (auto) 0.2 %; Lymphocytes # (auto) 0.27 K/uL (1.20-3.40); Lymphocytes % (auto) 6.2 %; Monocytes # (auto) 0.05 K/uL (0.11-0.59); Monocytes % (auto) 1.1 %; Neutrophils # (auto) 4.04 K/uL (1.40-6.50); Neutrophils % (auto) 92.3 %
[2024-06-18] MEDS: ALBUT/IPRATROP 3MG/0.5MG NEB 3 ML VIAL NEB SCH (07:25)
--- NOTE | 2024-06-18 07:43 | XRay Report ---
XR chest 1V portable HISTORY: Sepsis COMPARISON: Chest 11/13/2023. FINDINGS: No pneumothorax. No pleural effusions. The heart is normal in size. There are old, healed b ilateral rib fractures. No evidence for pulmonary edema. Right basilar linear densities favor subsegm ental atelectasis or scarring. Otherwise, no focal lung consolidations to suggest a pneumonia. Mild e mphysema again noted. IMPRESSION: No acute process. ACT 112: Negative or not required by law. Electronically signed by: Jose Alberto Forde M.D. 06/18/2024 7:42 AM
[2024-06-18] MEDS ORDERED: methylPREDNISolone 125 MG/2 ML VIAL IV SCH (09:00)
[2024-06-18] MEDS: ENOXAPARIN INJ 40 MG/0.4 ML SYR SQ SCH (10:28)
[2024-06-18] MEDS: THIAMINE HCL 100 MG TAB PO SCH (10:29)
[2024-06-18] MEDS: AZITHROMYCIN 250 MG TAB PO SCH (10:29)
[2024-06-18] MEDS: UMECLIDINIUM BROMIDE 62.5MCG/BLISTER 7 PUFFS/INHALER INH SCH (10:30)
[2024-06-18] MEDS: FLUTICASONE/VILANTEROL 100/25MCG 14 PUFFS/INHALER INH SCH (10:30)
--- NOTE | 2024-06-18 12:06 | Hospitalist Progress Note ---
Date of Service June 18, 2024 Assessment & Plan (1) COPD exacerbation: Plan: 63-year-old male coming from [facility] with past medical history significant for COPD, asthma, restless leg syndrome, unspecified bipolar disorder, schizophrenia, hypertension, history of inguinal hernia,history of hepatitis C, who presents because of shortness of breath. Patient states having shortness of breath going on for last 2 weeks. Coughing and spitting up stuff. Using a lot of albuterol inhalers. Came into the ED because he was having a lot of trouble breathing and [facility] gave neb treatments and Solu- Medrol and called EMS .For EMS was saturating only in 80's on 100% nonrebreather and was placed on CPAP and brought to the ER. Patient denied fever, reported cough with scant whitish sputum. He is being managed for the following: COPD exacerbation VBG okay, came in w/ increased cough, wheezing. Admitting chest imaging reviewed. Procal neg c/w azithro, steroid, nebs. pt started feeling better on 5L NC O2, wean as ranjan incentive spirometer and flutter valve. Enterorhinovirus URTI Possible cause of COPD exacerbation Droplet precautions Supportive care Elevated lactic acid: Lactic acid 2.5. Mostly from hypoxia. c/w ivf and O2 supplementation. Trend LA until downtrending or nl. Chest tightness: mostly from copd. Trop x2 better. Improved w/ nebs and steroid. Restless leg syndrome: On ropinirole Hypertension: On amlodipine and hydrochlorothiazide. Will monitor History of bipolar disorder/Schizophrenia: Continue home medications DVT prophylaxis: Lovenox Disposition: Telemetry Full code Admission and Anticipated Discharge Date Admission Date: June 18, 2024 Subjective Patient was seen and examined at bedside. Patient was lying in bed, on 5 L oxygen via nasal cannula, NAD, resting co mfortably. Patient reports his shortness of breath and wheezing getting better, reports cough with scant white sputum, denies fever. Patient reports eating okay and moving bowels okay. Physical Exam Physical Exam: General- Not in acute distress, On 5 L nasal cannula. Head- atraumatic Eyes- PERRL. ENT- oropharynx clear Neck- supple, no JVD. Lungs- b/l rhonchi and wheezing heard. Heart- regular rate and rhythm; Tachycardia.no murmur, no gallop. Abdomen- normal bowel sounds, soft, nontender, no distension. Extremities- no pretibial edema, no erythema seen Neuro- alert, oriented PERRL, no facial palsy; no dysarthria; moves extremities Results & Data Results & Data Vital Signs (Past 12 Hours) Vital Signs Temp Pulse Pulse Resp BP Pulse Ox O2 Del Method 06/18/24 11:00 102 H 20 94 Nasal Cannula 06/18/24 10:40 36.5 C 96 H 20 132/98 95 Nasal Cannula 06/18/24 09:44 High Flow Nasal Cannula 06/18/24 07:35 36.4 C L 99 H 22 137/97 96 Oxymask 06/18/24 07:28 96 H 22 94 Oxymask 06/18/24 04:00 BiPAP 06/18/24 04:00 102 H 15 96 06/18/24 03:32 104 H 06/18/24 03:23 36.6 C 98 H 18 133/88 96 BiPAP 06/18/24 02:51 93 H 24 131/97 94 Room Air 06/18/24 01:00 92 H 20 131/96 95 BiPAP 06/18/24 00:57 93 H 06/18/24 00:00 95 H 20 130/96 97 BiPAP O2 Flow Rate FiO2 06/18/24 11:00 5 06/18/24 10:40 6 06/18/24 09:44 5 06/18/24 07:35 5 06/18/24 07:28 5 06/18/24 04:00 40 06/18/24 04:00 40 06/18/24 03:32 06/18/24 03:23 06/18/24 02:51 06/18/24 01:00 06/18/24 00:57 06/18/24 00:00
--- NOTE | 2024-06-18 12:26 | Electrocardiogram Report ---
Test Reason : Blood Pressure : */* mmHG Vent. Rate : 112 BPM Atrial Rate : 112 BPM P-R Int : 174 ms QRS Dur : 68 ms QT Int : 318 ms P-R-T Axes : 26 -78 81 degrees QTcB Int : 434 ms Sinus tachycardia Left axis deviation Inferior infarct (cited on or before 01-Feb-2022) Possible Anterior infarct , age undetermined Abnormal ECG When compared with ECG of 13-Nov-2023 02:19, No significant change Confirmed by Adolfo Jain ([id number]) on 06/18/2024 12:26:20 PM Referred By: [facility] Confirmed By: Adolfo Jain
[2024-06-18] MEDS: hydroCHLOROthiazide 25 MG TAB PO SCH (20:06)
[2024-06-18] MEDS: CITALOPRAM 20 MG TAB PO SCH (20:07)
[2024-06-18] MEDS: ASPIRIN 81 MG ECTAB PO SCH (20:07)
[2024-06-18] MEDS: AMANTADINE HCL 100 MG CAPSULE PO SCH (20:07)
[2024-06-18] MEDS: amLODIPine BESYLATE 5 MG TAB PO SCH (20:07)
[2024-06-18] MEDS: rOPINIRole HCL 1 MG TABLET PO SCH (20:07)
[2024-06-19] MEDS: ALUMINUM/MAGNESIUM/SIMETH (MAALOX MAX) 30 ML UDC PO STA (04:32)
[2024-06-19 06:11] LABS: Hematocrit (blood only) 45.2 % (42.0-52.0); Hemoglobin 15.4 g/dl (14.0-18.0); Mean Corpuscular Hgb Conc 34.1 g/dL (32.0-36.0); Mean Corpuscular Volume 93.8 fL (80.0-100.0); Mean Platelet Volume 9.1 fL (9.4-12.4); Platelet Count 208 K/uL (130-400); RDW Coefficient of Variation 12.1 % (11.5-14.5); Red Blood Count 4.82 M/uL (4.70-6.10); White Blood Count 16.12 K/ul (4.8-10.8)
[2024-06-19 06:29] LABS: BUN Creatinine Ratio 22.6 (10-20); Calcium 10.4 mg/dl (8.6-10.3); Creatinine Clr Calc Pharmacy 77.6 ml/min; Est GFR (African American) 77.5 ml/min; Est GFR (Non-African American) 66.9 ml/min; Magnesium 2.1 mg/dl (1.7-2.4); Phosphorus 3.2 mg/dl (2.5-4.9); Potassium 3.4 mmol/L (3.5-5.1)
[2024-06-19] MEDS: POTASSIUM CHLORIDE CRTAB 20 MEQ TABCR PO STA (08:50)
[2024-06-19] MEDS: CALCIUM CARBONATE 500 MG CHEWABLE TAB PO STA (12:14)
[2024-06-19] MEDS: PANTOprazole 40 MG TAB PO ONE (12:46)
[2024-06-19] MEDS ORDERED: CALCIUM CARBONATE 500 MG CHEWABLE TAB PO PRN (16:20)
--- NOTE | 2024-06-19 16:22 | Hospitalist Progress Note ---
Date of Service June 19, 2024 Assessment & Plan (1) COPD exacerbation: Plan: 63-year-old male coming from [facility] with past medical history significant for COPD, asthma, restless leg syndrome, unspecified bipolar disorder, schizophrenia, hypertension, history of inguinal hernia,history of hepatitis C, who presents because of shortness of breath. Patient states having shortness of breath going on for last 2 weeks. Coughing and spitting up stuff. Using a lot of albuterol inhalers. Came into the ED because he was having a lot of trouble breathing and [facility] gave neb treatments and Solu- Medrol and called EMS .For EMS was saturating only in 80's on 100% nonrebreather and was placed on CPAP and brought to the ER. Patient denied fever, reported cough with scant whitish sputum. He is being managed for the following: COPD exacerbation VBG okay, came in w/ increased cough, wheezing. Admitting chest imaging reviewed. Procal neg c/w azithro, steroid, nebs. pt started feeling better, Still with significant wheezing, will wean down the steroid tomorrow on 4L NC O2, wean as ranjan incentive spirometer and flutter valve. Enterorhinovirus URTI Possible cause of COPD exacerbation Droplet precautions Supportive care Elevated lactic acid: Lactic acid 2.5. Mostly from hypoxia. c/w ivf and O2 supplementation. lactic acid trended down. Chest tightness: mostly from copd. Trop x2 better. Improved w/ nebs and steroid. Restless leg syndrome: On ropinirole Hypertension: On amlodipine and hydrochlorothiazide. Will monitor History of bipolar disorder/Schizophrenia: Continue home medications DVT prophylaxis: Lovenox Disposition: Telemetry Full code Admission and Anticipated Discharge Date Admission Date: June 18, 2024 Subjective Patient was seen and examined at bedside. Patient was lying in bed, on 4 L oxygen via nasal cannula, NAD, resting comfortably. Patient reports his shortness of breath and wheezing getting better, reports cough with scant white sputum, denies fever. Patient reports eating okay and moving bowels okay. Physical Exam Physical Exam: General- Not in acute distress, On 5 4 nasal cannula. Head- atraumatic Eyes- PERRL. ENT- oropharynx clear Neck- supple, no JVD. Lungs- b/l rhonchi and wheezing heard. Heart- regular rate and rhythm; Tachycardia.no murmur, no gallop. Abdomen- normal bowel sounds, soft, nontender, no distension. Extremities- no pretibial edema, no erythema seen Neuro- alert, oriented PERRL, no facial palsy; no dysarthria; moves extremities Results & Data Results & Data Vital Signs (Past 12 Hours) Vital Signs Temp Pulse Pulse Resp BP Pulse Ox O2 Del Method 06/19/24 15:00 36.8 C 119 H 20 110/84 91 Nasal Cannula 06/19/24 14:37 107 H 18 91 Nasal Cannula 06/19/24 10:50 110 H 17 90 Nasal Cannula 06/19/24 10:40 36.7 C 101 H 20 124/89 90 Nasal Cannula 06/19/24 08:56 High Flow Nasal Cannula 06/19/24 07:32 36.5 C 108 H 20 121/86 94 Nebulizer 06/19/24 07:17 88 20 93 Nasal Cannula 06/19/24 07:06 102 H O2 Flow Rate 06/19/24 15:00 06/19/24 14:37 4 06/19/24 10:50 3 06/19/24 10:40 4 06/19/24 08:56 4 06/19/24 07:32 06/19/24 07:17 4 06/19/24 07:06
[2024-06-19] MEDS: PANTOprazole 40 MG TAB PO SCH (20:19)
[2024-06-20 06:30] LABS: Hematocrit (blood only) 45.1 % (42.0-52.0); Hemoglobin 15.1 g/dl (14.0-18.0); Mean Corpuscular Hemoglobin 31.5 pg (25.0-34.0); Mean Corpuscular Hgb Conc 33.5 g/dL (32.0-36.0); Mean Platelet Volume 9.1 fL (9.4-12.4); Platelet Count 194 K/uL (130-400); RDW Coefficient of Variation 11.9 % (11.5-14.5); RDW Standard Deviation 41.6 fL (36.4-46.3)
[2024-06-20 07:11] LABS: BUN Creatinine Ratio 29.5 (10-20); Calcium 10.7 mg/dl (8.6-10.3); Creatinine Clr Calc Pharmacy 84.9 ml/min; Est GFR (African American) 86.5 ml/min; Est GFR (Non-African American) 74.7 ml/min; Magnesium 2.2 mg/dl (1.7-2.4); Phosphorus 2.6 mg/dl (2.5-4.9); Potassium 4.1 mmol/L (3.5-5.1)
--- NOTE | 2024-06-20 08:36 | XRay Report ---
XR chest 1V portable CLINICAL HISTORY: copd exacerbation, not improving expected COMPARISON STUDY: Chest radiograph and chest CT June 17, 2024. FINDINGS: There is no pneumothorax or pleural effusion. There is no evidence for pulmonary edema. No consolidation to suggest pneumonia. Cardiomediastinal silhouette is normal. Linear right basilar dens ities favor atelectasis. Old bilateral rib fractures are incidentally noted. IMPRESSION: No acute cardiopulmonary findings. ACT 112: Negative or not required by law. Electronically signed by: Andre Muñoz M.D. 06/20/2024 8:35 AM
[2024-06-20] MEDS: guaiFENesin 600 MG TABCR PO SCH (09:34)
--- NOTE | 2024-06-20 14:51 | Hospitalist Progress Note ---
Date of Service June 20, 2024 Assessment & Plan (1) COPD exacerbation: Plan: 63-year-old male coming from [facility] with past medical history significant for COPD, asthma, restless leg syndrome, unspecified bipolar disorder, schizophrenia, hypertension, history of inguinal hernia,history of hepatitis C, who presents because of shortness of breath. Patient states having shortness of breath going on for last 2 weeks. Coughing and spitting up stuff. Using a lot of albuterol inhalers. Came into the ED because he was having a lot of trouble breathing and [facility] gave neb treatments and Solu- Medrol and called EMS .For EMS was saturating only in 80's on 100% nonrebreather and was placed on CPAP and brought to the ER. Patient denied fever, reported cough with scant whitish sputum. He is being managed for the following: COPD exacerbation VBG okay, came in w/ increased cough, wheezing. Admitting chest imaging reviewed. Procal neg c/w azithro, steroid, nebs. pt started feeling better, Still with significant wheezing, continue current steroid on 5L NC O2, wean as ranjan incentive spirometer and flutter valve. add mucinex, hypertonic saline nebs. If not improving or worsening, consider pulm involvement. Enterorhinovirus URTI Possible cause of COPD exacerbation Droplet precautions Supportive care Elevated lactic acid: Lactic acid 2.5. Mostly from hypoxia. c/w ivf and O2 supplementation. lactic acid trended down. Chest tightness: mostly from copd. Trop x2 better. Improved w/ nebs and steroid. Restless leg syndrome: On ropinirole Hypertension: On amlodipine and hydrochlorothiazide. Will monitor History of bipolar disorder/Schizophrenia: Continue home medications DVT prophylaxis: Lovenox Disposition: Telemetry Full code Admission and Anticipated Discharge Date Admission Date: June 18, 2024 Subjective Patient was seen and examined at bedside. Patient was lying in bed, on 5 L oxygen via nasal cannula, NAD, resting comfortably. Patient reports his shortness of breath and wheezing getting better, reports cough with scant white sputum, denies fever. Patient reports eating okay and moving bowels okay. Physical Exam Physical Exam: General- Not in acute distress, On 5 L nasal cannula. Head- atraumatic Eyes- PERRL. ENT- oropharynx clear Neck- supple, no JVD. Lungs- b/l rhonchi and wheezing heard. Heart- regular rate and rhythm; Tachycardia.no murmur, no gallop. Abdomen- normal bowel sounds, soft, nontender, no distension. Extremities- no pretibial edema, no erythema seen Neuro- alert, oriented PERRL, no facial palsy; no dysarthria; moves extremities Results & Data Results & Data Vital Signs (Past 12 Hours) Vital Signs Temp Pulse Pulse Resp BP Pulse Ox O2 Del Method 06/20/24 14:22 83 18 96 Nasal Cannula 06/20/24 14:01 97 H 06/20/24 10:38 36.7 C 116 H 20 113/86 93 Nasal Cannula 06/20/24 10:13 104 H 20 94 Nasal Cannula 06/20/24 09:40 Nasal Cannula 06/20/24 08:00 113 H 06/20/24 07:15 108 H 16 94 BiPAP 06/20/24 07:00 36.6 C 124 H 18 134/94 90 Nasal Cannula 06/20/24 03:37 36.7 C 90 17 138/99 90 Room Air 06/20/24 03:22 116 H 20 89 L Nasal Cannula 06/20/24 03:00 99 H O2 Flow Rate FiO2 06/20/24 14:22 6 06/20/24 14:01 06/20/24 10:38 06/20/24 10:13 6 06/20/24 09:40 7 06/20/24 08:00 06/20/24 07:15 40 06/20/24 07:00 06/20/24 03:37 06/20/24 03:22 5 06/20/24 03:00
[2024-06-20] MEDS: SODIUM CHLOR 7% 4 ML NEB NEB SCH (19:54)
[2024-06-21 06:10] LABS: Hematocrit (blood only) 43.2 % (42.0-52.0); Hemoglobin 14.9 g/dl (14.0-18.0); Mean Corpuscular Hgb Conc 34.5 g/dL (32.0-36.0); Mean Corpuscular Volume 92.9 fL (80.0-100.0); Mean Platelet Volume 9.2 fL (9.4-12.4); Platelet Count 216 K/uL (130-400); RDW Coefficient of Variation 11.9 % (11.5-14.5); RDW Standard Deviation 40.5 fL (36.4-46.3); Red Blood Count 4.65 M/uL (4.70-6.10); White Blood Count 15.29 K/ul (4.8-10.8)
[2024-06-21 07:05] LABS: BUN Creatinine Ratio 31.8 (10-20); Calcium 10.3 mg/dl (8.6-10.3); Creatinine Clr Calc Pharmacy 83.4 ml/min; Est GFR (African American) 84.6 ml/min; Potassium 4.3 mmol/L (3.5-5.1)
[2024-06-21] MEDS: FORMOTEROL 20 MCG/2 ML VIAL ONE (10:01)
[2024-06-21] MEDS: FORMOTEROL 20 MCG/2 ML VIAL NEB SCH (10:01)
[2024-06-21] MEDS: BUDESONIDE 0.5 MG/2 ML VIAL (PULMICORT) NEB SCH (10:01)
--- NOTE | 2024-06-21 10:51 | Pulmonary Consultation ---
Date of Consultation June 21, 2024 Assessment & Plan (1) COPD with acute exacerbation: (2) Rhinovirus infection: (3) Acute respiratory failure with hypoxia: Plan Continue methylprednisone 40 mg twice daily. Continue nebulized formoterol and budesonide. Continue Mucinex, DuoNebs as needed. Discontinue Breo inhaler. Continue azithromycin 250 mg daily. Would benefit from outpatient PFTs. Wean oxygen to maintain sats of 89 to 93%. If patient has productive sputum, consider obtaining sputum culture and blood cultures. Respiratory viral panel positive for enterovirus on admission. Suspect respiratory viral bronchiolitis. Consider echo to evaluate LV and RV function. Thank you for the consult. Will follow. History of Present Illness Reason for Consultation: COPD exacerbation Attending Physician: Suyapa Julio MD History of Present Illness 63-year-old prisoner who has been incarcerated for 3 years presenting to the hospital with shortness of breath. Being treated for COPD exacerbation. Notes increased cough and sputum production. Very short of breath with minimal activity. On exam he is quite wheezy. He does notice some slight improvement since hospital admission. Currently on 6 L of oxygen. Patient notes a [id number] smoking history. Chest x-ray 06/20/2024 revealed right linear basilar densities and old bilateral rib fractures. Chest CTA revealed bronchial wall thickening and moderately severe pulmonary emphysema bilaterally 06/17/2024. Allergies Allergy/AdvReac Type Severity Reaction Status Date / Time haloperidol [From Haldol] Allergy Difficulty Verified 11/13/23 02:34 Breathing penicillin G benzathine Allergy Unknown Verified 11/13/23 02:52 sodium chloride Allergy Unknown Verified 11/13/23 02:52 [From [place] Nasal] Home Medications Medication Instructions Recorded Confirmed Type albuterol sulfate 90 mcg/actuation 2 puff inhalation QID PRN 11/13/23 06/18/24 History aerosol inhaler Shortness Of Breath amlodipine 10 mg tablet 10 mg PO HS 11/13/23 06/18/24 History aspirin 81 mg chewable tablet 81 mg PO HS 11/13/23 06/18/24 History fluticasone 250 mcg-salmeterol 50 1 inh inhalation BID 11/13/23 06/18/24 History mcg/dose blistr powdr for inhalation hydrochlorothiazide 25 mg tablet 25 mg PO QPM 11/13/23 06/18/24 History ropinirole 1 mg tablet 1 mg PO HS 11/13/23 06/18/24 History umeclidinium 62.5 mcg/actuation 1 inh inhalation DAILY 11/13/23 06/18/24 History blister powder for inhalation (Incruse Ellipta) amantadine HCl 100 mg capsule 100 mg PO HS 06/18/24 06/18/24 History azithromycin 250 mg tablet 250 mg PO DAILY 06/18/24 06/18/24 History citalopram 10 mg tablet 10 mg PO HS 06/18/24 06/18/24 History prednisone 10 mg tablet 50 mg PO DAILY 06/18/24 06/18/24 History Patient History Social History Smoking Status: Former smoker Tobacco Type: Cigarettes Second Hand Exposure: No; Do You Dip or Chew Tobacco: No; Tobacco Cessation Education Requested by Patient: No Hx Alcohol Use: No Hx Substance Use: No Preferred Language: Belarusian Communication Ability: Unable 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 Patient is in no apparent distress. Patient is well-developed. Eyes: Pupils are equal round and reactive to light. Conjunctivae are normal. Anicteric sclera. Ears nose, mouth and throat: Mallampati class 2. Normal posterior oropharynx. Uvula is midline. Neck: Trachea is midline. Visual inspection is normal. Respiratory: Diffusely wheezy with prolonged phase of exhalation. Cardiovascular: Regular rate and rhythm. No murmurs. No edema. Gastrointestinal: Normal bowel sounds, soft, nontender and nondistended. No hepatosplenomegaly noted. Musculoskeletal: No cyanosis. Patient is able to move all extremities. Strength is 5 out of 5 in the upper and lower extremities. Skin: No rashes, warm dry and intact. Neurologic: No obvious focal neurological deficits seen. Psychiatric: Alert and oriented x3 with a euthymic affect. Results & Data Results & Data Vital Signs (Past 12 Hours) Vital Signs Temp Pulse Pulse Resp BP Pulse Ox O2 Del Method 06/21/24 10:04 96 H 18 94 Nasal Cannula 06/21/24 09:00 85 06/21/24 09:00 Nasal Cannula 06/21/24 08:13 36.6 C 98 H 20 143/100 H 93 Nasal Cannula 06/21/24 07:21 88 15 88 L BiPAP 06/21/24 03:53 36.8 C 101 H 17 137/99 96 Nasal Cannula 06/21/24 01:00 90 06/20/24 22:50 36.8 C 92 H 23 139/93 91 Nasal Cannula O2 Flow Rate FiO2 06/21/24 10:04 6 06/21/24 09:00 06/21/24 09:00 6 06/21/24 08:13 7.0 06/21/24 07:21 45 06/21/24 03:53 6 06/21/24 01:00 06/20/24 22:50 6 PG Care Time/CCT Total # of Minutes Spent Total Time Spent with Patient: Total time spent is greater than 50% in coordination of care (as documented) at patient's floor/unit and/or counseling patient: Coding Level of Care Code 21300 INT INP/OBS CARE 2/55MIN Diagnoses COPD with acute exacerbation J44.1 Rhinovirus infection B34.8 Acute respiratory failure with hypoxia J96.01
--- NOTE | 2024-06-21 15:47 | Hospitalist Progress Note ---
Date of Service June 21, 2024 Assessment & Plan (1) COPD exacerbation: Plan: 63-year-old male coming from [place] [facility] with past medical history significant for COPD, asthma, restless leg syndrome, unspecified bipolar disorder, schizophrenia, hypertension, history of inguinal hernia,history of hepatitis C, who presents because of shortness of breath. Patient states having shortness of breath going on for last 2 weeks. Coughing and spitting up stuff. Using a lot of albuterol inhalers. Came into the ED because he was having a lot of trouble breathing and [facility] gave neb treatments and Solu- Medrol and called EMS .For EMS was saturating only in 80's on 100% nonrebreather and was placed on CPAP and brought to the ER. Patient denied fever, reported cough with scant whitish sputum. He is being managed for the following: COPD exacerbation VBG okay, came in w/ increased cough, wheezing. Admitting chest imaging reviewed. Procal neg c/w azithro, steroid, nebs. pt started feeling better, Still with significant wheezing and doesn't seem clinically improving, pulm consulted. on 6L NC O2, wean as ranjan incentive spirometer and flutter valve. c/w mucinex, hypertonic saline nebs. Added budesonide and performist nebs. hold home inhaler. Appreciate pulm recs. Enterorhinovirus URTI Possible cause of COPD exacerbation Droplet precautions Supportive care Elevated lactic acid: Lactic acid 2.5. Mostly from hypoxia. c/w ivf and O2 supplementation. lactic acid trended down. Chest tightness: mostly from copd. Trop x2 better. Improved w/ nebs and steroid. Restless leg syndrome: On ropinirole Hypertension: On amlodipine and hydrochlorothiazide. Will monitor History of bipolar disorder/Schizophrenia: Continue home medications DVT prophylaxis: Lovenox Disposition: Telemetry Full code Admission and Anticipated Discharge Date Admission Date: June 18, 2024 Subjective Patient was seen and examined at bedside. Patient was lying in bed, on 6 L oxygen via nasal cannula, NAD, resting comf ortably. Patient reports his shortness of breath and wheezing getting better, reports cough with scant white sputum, denies fever. Patient reports eating okay and moving bowels okay. Physical Exam Physical Exam: General- Not in acute distress, On 6 L nasal cannula. Head- atraumatic Eyes- PERRL. ENT- oropharynx clear Neck- supple, no JVD. Lungs- b/l rhonchi and wheezing heard. Heart- regular rate and rhythm; Tachycardia.no murmur, no gallop. Abdomen- normal bowel sounds, soft, nontender, no distension. Extremities- no pretibial edema, no erythema seen Neuro- alert, oriented PERRL, no facial palsy; no dysarthria; moves extremities Results & Data Results & Data Vital Signs (Past 12 Hours) Vital Signs Temp Pulse Pulse Resp BP Pulse Ox O2 Del Method 06/21/24 15:20 36.6 C 94 H 20 150/98 H 92 Nasal Cannula 06/21/24 10:49 36.7 C 94 H 18 132/92 93 Nasal Cannula 06/21/24 10:04 96 H 18 94 Nasal Cannula 06/21/24 09:00 85 06/21/24 09:00 Nasal Cannula 06/21/24 08:13 36.6 C 98 H 20 143/100 H 93 Nasal Cannula 06/21/24 07:21 88 15 88 L BiPAP 06/21/24 03:53 36.8 C 101 H 17 137/99 96 Nasal Cannula O2 Flow Rate FiO2 06/21/24 15:20 6.0 06/21/24 10:49 6.0 06/21/24 10:04 6 06/21/24 09:00 06/21/24 09:00 6 06/21/24 08:13 7.0 06/21/24 07:21 45 06/21/24 03:53 6
[2024-06-21] MEDS ORDERED: methylPREDNISolone 40 MG in SYRINGE 0 ML IV SCH (21:00)
[2024-06-22 06:39] LABS: Hematocrit (blood only) 44.6 % (42.0-52.0); Hemoglobin 15.7 g/dl (14.0-18.0); Mean Corpuscular Hgb Conc 35.2 g/dL (32.0-36.0); Mean Corpuscular Volume 90.8 fL (80.0-100.0); Mean Platelet Volume 9.1 fL (9.4-12.4); Platelet Count 187 K/uL (130-400); RDW Coefficient of Variation 11.6 % (11.5-14.5); RDW Standard Deviation 38.6 fL (36.4-46.3); Red Blood Count 4.91 M/uL (4.70-6.10); White Blood Count 11.03 K/ul (4.8-10.8)
[2024-06-22 06:45] LABS: BUN Creatinine Ratio 32.3 (10-20); Calcium 9.9 mg/dl (8.6-10.3); Creatinine Clr Calc Pharmacy 90.1 ml/min; Est GFR (African American) 92.9 ml/min; Est GFR (Non-African American) 80.2 ml/min; Magnesium 2.1 mg/dl (1.7-2.4); Phosphorus 2.4 mg/dl (2.5-4.9); Potassium 3.7 mmol/L (3.5-5.1)
[2024-06-22] MEDS: methylPREDNISolone 40 MG in SYRINGE 0 ML IV SCH (08:37)
[2024-06-22] MEDS: POT PHOSPHATE MONOBASIC W/ SOD TAB PO SCH (08:48)
--- NOTE | 2024-06-22 10:30 | Pulmonology Progress Note ---
Date of Service June 22, 2024 Assessment & Plan (1) COPD with acute exacerbation: (2) Rhinovirus infection: (3) Acute respiratory failure with hypoxia: Plan Continue methylprednisone 40 mg twice daily. Continue nebulized formoterol and budesonide. Continue Mucinex, DuoNebs and hypertonic saline twice daily as needed. Continue azithromycin 250 mg daily. Would benefit from outpatient PFTs. Wean oxygen to maintain sats of 89 to 92%. Sputum cultures with many gram-positive cocci. Nasal MRSA screen negative. Respiratory viral panel positive for enterovirus on admission. Suspect respiratory viral bronchiolitis. Echo 06/21/2024 with an EF of 60 to 65%. Right ventricle normal in size and function. Grade 1 diastolic dysfunction. Thank you for the consult. Will follow. Admission and Anticipated Discharge Date Admission Date: June 18, 2024 Subjective He is slowly improving with shortness of breath, cough and wheezing. Still r equiring 5 L of oxygen. Review of Systems Review of Systems: All systems reviewed & are unremarkable except as noted in HPI & below Physical Exam Physical Exam: Constitutional: Patient appears to be of their stated age. Patient is in no apparent distress. Patient is well-developed. Eyes: Pupils are equal round and reactive to light. Conjunctivae are normal. Anicteric sclera. Ears nose, mouth and throat: Mallampati class 2. Normal posterior oropharynx. Uvula is midline. Neck: Trachea is midline. Visual inspection is normal. Respiratory: Diffusely wheezy with prolonged phase of exhalation. Cardiovascular: Regular rate and rhythm. No murmurs. No edema. Gastrointestinal: Normal bowel sounds, soft, nontender and nondistended. No hepatosplenomegaly noted. Musculoskeletal: No cyanosis. Patient is able to move all extremities. Strength is 5 out of 5 in the upper and lower extremities. Skin: No rashes, warm dry and intact. Neurologic: No obvious focal neurological deficits seen. Psychiatric: Alert and oriented x3 with a euthymic affect. Results & Data Results & Data Vital Signs (Past 12 Hours) Vital Signs Temp Pulse Pulse Resp BP Pulse Ox O2 Del Method 06/22/24 10:03 85 20 91 Nasal Cannula 06/22/24 08:12 36.8 C 88 20 138/84 92 Nasal Cannula 06/22/24 08:08 84 06/22/24 08:08 Nasal Cannula 09/24/24 06:56 80 18 97 Nasal Cannula 06/22/24 03:16 36.6 C 82 16 133/95 92 CPAP 06/21/24 23:44 94 H 06/21/24 23:29 36.7 C 90 20 133/95 95 CPAP 06/21/24 23:15 86 17 91 O2 Flow Rate FiO2 06/22/24 10:03 5 06/22/24 08:12 4 06/22/24 08:08 06/22/24 08:08 4 06/22/24 06:56 6 06/22/24 03:16 06/21/24 23:44 06/21/24 23:29 06/21/24 23:15 50 PG Care Time/CCT Total # of Minutes Spent Total Time Spent with Patient: Total time spent is greater than 50% in coordination of care (as documented) at patient's floor/unit and/or counseling patient: Coding Level of Care Code 60850 SUB INP/OBS CARE 2/35MIN Diagnoses COPD with acute exacerbation J44.1 Rhinovirus infection B34.8 Acute respiratory failure with hypoxia J96.01
--- NOTE | 2024-06-22 13:37 | Hospitalist Progress Note ---
Date of Service June 22, 2024 Assessment & Plan (1) COPD exacerbation: Plan: 63-year-old male coming from [place] assisted with past medical history significant for COPD, asthma, restless leg syndrome, unspecified bipolar disorder, schizophrenia, hypertension, history of inguinal hernia,history of hepatitis C, who presents because of shortness of breath. Patient states having shortness of breath going on for last 2 weeks. Coughing and spitting up stuff. Using a lot of albuterol inhalers. Came into the ED because he was having a lot of trouble breathing and [facility] gave neb treatments and Solu- Medrol and called EMS .For EMS was saturating only in 80's on 100% nonrebreather and was placed on CPAP and brought to the ER. Patient denied fever, reported cough with scant whitish sputum. He is being managed for the following: COPD exacerbation VBG okay, came in w/ increased cough, wheezing. Admitting chest imaging reviewed. Procal neg ECHO 06/21 reviewed. c/w azithro, steroid, nebs. pt started feeling better, Still with significant wheezing and slow improvement. on 6L NC O2, wean as ranjan incentive spirometer and flutter valve. c/w mucinex, hypertonic saline nebs. c/w budesonide and performist nebs. hold home inhaler. Appreciate pulm recs. Enterorhinovirus URTI Possible cause of COPD exacerbation Droplet precautions Supportive care Elevated lactic acid: Lactic acid 2.5. Mostly from hypoxia. c/w ivf and O2 supplementation. lactic acid trended down. Chest tightness: mostly from copd. Trop x2 better. Improved w/ nebs and steroid. Restless leg syndrome: On ropinirole Hypertension: On amlodipine and hydrochlorothiazide. Will monitor History of bipolar disorder/Schizophrenia: Continue home medications DVT prophylaxis: Lovenox Disposition: Telemetry Full code Admission and Anticipated Discharge Date Admission Date: June 18, 2024 Subjective Patient was seen and examined at bedside. Patient was lying in bed, on 6 L oxygen via nasal cannula, NAD, resting comfortably. Patient reports his shortness of breath and wheezing getting better, reports cough with scant white sputum, denies fever. but exam reveals significant wheeze and crackles. Patient reports eating okay and moving bowels okay. Physical Exam Physical Exam: General- Not in acute distress, On 6 L nasal cannula. Head- atraumatic Eyes- PERRL. ENT- oropharynx clear Neck- supple, no JVD. Lungs- b/l rhonchi and wheezing heard. Heart- regular rate and rhythm; Tachycardia.no murmur, no gallop. Abdomen- normal bowel sounds, soft, nontender, no distension. Extremities- no pretibial edema, no erythema seen Neuro- alert, oriented PERRL, no facial palsy; no dysarthria; moves extremities Results & Data Results & Data Vital Signs (Past 12 Hours) Vital Signs Temp Pulse Pulse Resp BP Pulse Ox O2 Del Method 06/22/24 10:31 36.4 C L 104 H 19 142/95 H 92 Nasal Cannula 06/22/24 10:03 85 20 91 Nasal Cannula 06/22/24 08:12 36.8 C 88 20 138/84 92 Nasal Cannula 06/22/24 08:08 84 06/22/24 08:08 Nasal Cannula 06/22/24 06:56 80 18 97 Nasal Cannula 06/22/24 03:16 36.6 C 82 16 133/95 92 CPAP O2 Flow Rate 06/22/24 10:31 5 06/22/24 10:03 5 06/22/24 08:12 4 06/22/24 08:08 06/22/24 08:08 4 06/22/24 06:56 6 06/22/24 03:16
[2024-06-23 06:31] LABS: BUN Creatinine Ratio 27.9 (10-20); Calcium 9.7 mg/dl (8.6-10.3); Creatinine Clr Calc Pharmacy 85.8 ml/min; Est GFR (African American) 87.5 ml/min; Est GFR (Non-African American) 75.5 ml/min; Phosphorus 3.8 mg/dl (2.5-4.9); Potassium 3.8 mmol/L (3.5-5.1)
--- NOTE | 2024-06-23 14:41 | Hospitalist Progress Note ---
Date of Service June 23, 2024 Assessment & Plan (1) COPD exacerbation: Plan: 63-year-old male coming from [place] assisted with past medical history significant for COPD, asthma, restless leg syndrome, unspecified bipolar disorder, schizophrenia, hypertension, history of inguinal hernia,history of hepatitis C, who presents because of shortness of breath. Patient states having shortness of breath going on for last 2 weeks. Coughing and spitting up stuff. Using a lot of albuterol inhalers. Came into the ED because he was having a lot of trouble breathing and [facility] gave neb treatments and Solu- Medrol and called EMS .For EMS was saturating only in 80's on 100% nonrebreather and was placed on CPAP and brought to the ER. Patient denied fever, reported cough with scant whitish sputum. He is being managed for the following: COPD exacerbation VBG okay, came in w/ increased cough, wheezing. Admitting chest imaging reviewed. Procal neg ECHO 06/21 reviewed. c/w azithro, steroid, nebs. Wheezing crackles b/l -gradual improvement on 5L NC O2, wean as ranjan incentive spirometer and flutter valve. c/w mucinex, hypertonic saline nebs. c/w budesonide and performist nebs. hold home inhaler. Appreciate pulm recs. Enterorhinovirus URTI Possible cause of COPD exacerbation Droplet precautions Supportive care Elevated lactic acid: Lactic acid 2.5. Mostly from hypoxia. c/w ivf and O2 supplementation. lactic acid trended down. Chest tightness: mostly from copd. Trop x2 better. Improved w/ nebs and steroid. Restless leg syndrome: On ropinirole Hypertension: On amlodipine and hydrochlorothiazide. Will monitor History of bipolar disorder/Schizophrenia: Continue home medications DVT prophylaxis: Lovenox Disposition: Telemetry Full code Admission and Anticipated Discharge Date Admission Date: June 18, 2024 Subjective Patient was seen and examined at bedside. Patient was lying in bed, on 4 L oxygen via nasal cannula, NAD, resting comfortably. Patient reports his shortness of breath and wheezing getting better, reports cough with scant white sputum, denies fever. now exam reveals some improving wheeze and crackles. Patient reports eating okay and moving bowels okay. Physical Exam Physical Exam: General- Not in acute distress, On 5 L nasal cannula. Head- atraumatic Eyes- PERRL. ENT- oropharynx clear Neck- supple, no JVD. Lungs- b/l rhonchi and wheezing heard. now improving some. Heart- regular rate and rhythm; .no murmur, no gallop. Abdomen- normal bowel sounds, soft, nontender, no distension. Extremities- no pretibial edema, no erythema seen Neuro- alert, oriented PERRL, no facial palsy; no dysarthria; moves extremities Results & Data Results & Data Vital Signs (Past 12 Hours) Vital Signs Temp Pulse Pulse Resp BP Pulse Ox O2 Del Method 06/23/24 14:34 88 20 92 Nasal Cannula 06/23/24 11:33 36.7 C 91 H 18 145/101 H 96 Nasal Cannula 06/23/24 10:21 94 H 16 94 Nasal Cannula 06/23/24 09:00 Nasal Cannula 06/23/24 08:16 36.4 C L 84 18 148/99 H 94 Nasal Cannula 06/23/24 07:19 79 20 94 Nasal Cannula 06/23/24 06:00 77 06/23/24 03:45 36.8 C 77 18 141/114 H 95 Nasal Cannula O2 Flow Rate 06/23/24 14:34 5 06/23/24 11:33 5 06/23/24 10:21 5 06/23/24 09:00 5 06/23/24 08:16 5 06/23/24 07:19 5 06/23/24 06:00 06/23/24 03:45 5
[2024-06-24 06:56] LABS: Calcium 9.9 mg/dl (8.6-10.3); Creatinine Clr Calc Pharmacy 89.2 ml/min; Est GFR (African American) 91.8 ml/min; Est GFR (Non-African American) 79.2 ml/min; Potassium 3.8 mmol/L (3.5-5.1)
--- NOTE | 2024-06-24 09:12 | XRay Report ---
XR chest 1V portable CLINICAL HISTORY: AE COPD not improving. f/u cxr TECHNIQUE: Single frontal radiograph of the chest was obtained. Comparison: Comparison is made to chest radiograph 06/20/2024 and CTA chest 06/17/2024 FINDINGS: No lines and tubes are seen. The cardiomediastinal silhouette is normal. The lungs are clear. No evid ence of pleural effusion or pneumothorax. IMPRESSION: No acute abnormalities and in particular no radiographic evidence of pneumonia. ACT 112: Negative or not required by law. Electronically signed by: Jerman Bernard M.D. 06/24/2024 9:11 AM
--- NOTE | 2024-06-24 12:45 | Hospitalist Progress Note ---
Date of Service June 24, 2024 Assessment & Plan (1) COPD exacerbation: Plan: 63-year-old male coming from [facility] with past medical history significant for COPD, asthma, restless leg syndrome, unspecified bipolar disorder, schizophrenia, hypertension, history of inguinal hernia,history of hepatitis C, who presents because of shortness of breath. Patient states having shortness of breath going on for last 2 weeks. Coughing and spitting up stuff. Using a lot of albuterol inhalers. Came into the ED because he was having a lot of trouble breathing and [facility] gave neb treatments and Solu- Medrol and called EMS .For EMS was saturating only in 80's on 100% nonrebreather and was placed on CPAP and brought to the ER. Patient denied fever, reported cough with scant whitish sputum. He is being managed for the following: COPD exacerbation VBG okay, came in w/ increased cough, wheezing. Admitting chest imaging reviewed. Procal neg ECHO 06/21 reviewed. c/w azithro, steroid, nebs. Wheezing crackles b/l -gradual improvement on 4L NC O2, wean as ranjan incentive spirometer and flutter valve. c/w mucinex, hypertonic saline nebs. c/w budesonide and performist nebs. hold home inhaler. Appreciate pulm recs. Enterorhinovirus URTI Possible cause of COPD exacerbation Droplet precautions Supportive care Elevated lactic acid: Lactic acid 2.5. Mostly from hypoxia. c/w ivf and O2 supplementation. lactic acid trended down. Chest tightness: mostly from copd. Trop x2 better. Improved w/ nebs and steroid. Restless leg syndrome: On ropinirole Hypertension: On amlodipine and hydrochlorothiazide. Will monitor History of bipolar disorder/Schizophrenia: Continue home medications DVT prophylaxis: Lovenox Disposition: Telemetry Full code Admission and Anticipated Discharge Date Admission Date: June 18, 2024 Subjective Patient was seen and examined at bedside. Patient was lying in bed, on 4 L oxygen via nasal cannula, NAD, resting comfortably. Patient reports his shortness of breath and wheezing getting better, reports cough with scant white sputum, denies fever. now exam reveals some improving wheeze and crackles. Patient reports eating okay and moving bowels okay. Physical Exam Physical Exam: General- Not in acute distress, On 4 L nasal cannula. Head- atraumatic Eyes- PERRL. ENT- oropharynx clear Neck- supple, no JVD. Lungs- b/l rhonchi and wheezing heard. now improving trend. Heart- regular rate and rhythm; .no murmur, no gallop. Abdomen- normal bowel sounds, soft, nontender, no distension. Extremities- no pretibial edema, no erythema seen Neuro- alert, oriented PERRL, no facial palsy; no dysarthria; moves extremities Results & Data Results & Data Vital Signs (Past 12 Hours) Vital Signs Temp Pulse Pulse Resp BP Pulse Ox Pulse Ox 06/24/24 12:01 36.5 C 83 18 125/94 91 06/24/24 11:13 06/24/24 10:23 84 18 91 06/24/24 08:38 36.5 C 88 19 127/92 92 06/24/24 07:16 78 18 95 06/24/24 06:00 72 06/24/24 03:18 36.9 C 81 18 144/100 H 93 06/24/24 03:00 94 06/24/24 01:07 139/97 O2 Del Method O2 Del Method O2 Flow Rate 06/24/24 12:01 Room Air 4 06/24/24 11:13 Nasal Cannula 5 06/24/24 10:23 Nasal Cannula 4 06/24/24 08:38 Nasal Cannula 4 06/24/24 07:16 Nasal Cannula 5 06/24/24 06:00 06/24/24 03:18 High Flow Nasal Cannula 06/24/24 03:00 High Flow Nasal Cannula 06/24/24 01:07
--- NOTE | 2024-06-24 16:55 | Pulmonology Progress Note ---
Date of Service June 24, 2024 Assessment & Plan (1) COPD with acute exacerbation: (2) Rhinovirus infection: (3) Acute respiratory failure with hypoxia: Plan Can transition to prednisone 40 mg daily. Continue an additional 5 days of prednisone and then stop. Recommended transitioning to high-dose Trelegy upon discharge. Continue nebulized formoterol and budesonide while in the hospital. Continue Mucinex, DuoNebs and hypertonic saline twice daily as needed. Continue azithromycin 250 mg daily. Would benefit from outpatient PFTs. Wean oxygen to maintain sats of 89 to 92%. Final sputum cultures demonstrated moderate normal tariq. Nasal MRSA screen negative. Respiratory viral panel positive for enterovirus on admission. Suspect respiratory viral bronchiolitis. Echo 06/21/2024 with an EF of 60 to 65%. Right ventricle normal in size and function. Grade 1 diastolic dysfunction. Patient likely close to baseline. Consider discharge back to facility in the next 1 to 2 days. Pulmonary sign off. Please call with questions. Thank you for the consult. Admission and Anticipated Discharge Date Admission Date: June 18, 2024 Subjective Patient appears stable on exam today if not slightly improved. He notes less shortness of breath. His oxygen requirements have improved slightly. No chest pain, fevers or chills. Continues to have dyspnea with mild exertion. Review of Systems Review of Systems: All systems reviewed & are unremarkable except as noted in HPI & below Physical Exam Physical Exam: Constitutional: Patient appears to be of their stated age. Patient is in no apparent distress. Patient is well-developed. Eyes: Pupils are equal round and reactive to light. Conjunctivae are normal. Anicteric sclera. Ears nose, mouth and throat: Mallampati class 2. Normal posterior oropharynx. Uvula is midline. Neck: Trachea is midline. Visual inspection is normal. Respiratory: Prolonged Cacicol exhalation. No wheeze. Cardiovascular: Regular rate and rhythm. No murmurs. No edema. Gastrointestinal: Normal bowel sounds, soft, nontender and nondistended. No hepatosplenomegaly noted. Musculoskeletal: No cyanosis. Patient is able to move all extremities. Strength is 5 out of 5 in the upper and lower extremities. Skin: No rashes, warm dry and intact. Neurologic: No obvious focal neurological deficits seen. Psychiatric: Alert and oriented x3 with a euthymic affect. Results & Data Results & Data Vital Signs (Past 12 Hours) Vital Signs Temp Pulse Pulse Resp BP Pulse Ox O2 Del Method 06/24/24 16:33 36.7 C 101 H 19 140/99 91 Nasal Cannula 06/24/24 15:23 84 16 93 Nasal Cannula 06/24/24 15:09 84 06/24/24 12:01 36.5 C 83 18 125/94 91 Room Air 06/24/24 11:13 Nasal Cannula 06/24/24 10:23 84 18 91 Nasal Cannula 06/24/24 08:38 36.5 C 88 19 127/92 92 Nasal Cannula 06/24/24 07:16 78 18 95 Nasal Cannula 06/24/24 06:00 72 O2 Flow Rate 06/24/24 16:33 4 06/24/24 15:23 4 06/24/24 15:09 06/24/24 12:01 4 06/24/24 11:13 5 06/24/24 10:23 4 06/24/24 08:38 4 06/24/24 07:16 5 06/24/24 06:00 PG Care Time/CCT Total # of Minutes Spent Total Time Spent with Patient: Total time spent is greater than 50% in coordination of care (as documented) at patient's floor/unit and/or counseling patient: Coding Level of Care Code 52656 SUB INP/OBS CARE 2/35MIN Diagnoses COPD with acute exacerbation J44.1 Rhinovirus infection B34.8 Acute respiratory failure with hypoxia J96.01
[2024-06-25 06:59] LABS: BUN Creatinine Ratio 33.3 (10-20); Calcium 9.9 mg/dl (8.6-10.3); Creatinine Clr Calc Pharmacy 80.4 ml/min; Est GFR (African American) 80.9 ml/min; Est GFR (Non-African American) 69.8 ml/min; Potassium 3.7 mmol/L (3.5-5.1)
[2024-06-25 07:14] VITALS: RESP 20
[2024-06-25 08:28] VITALS: TEMP 97.3
[2024-06-25] MEDS: predniSONE 20 MG TAB PO SCH (08:55)
[2024-06-25 10:47] VITALS: PULSE 89; O2SAT 96
--- NOTE | 2024-06-25 10:54 | Discharge Summary ---
Date of Service June 25, 2024 Admission HPI Per Admitting Provider 63-year-old male coming from [facility] with past medical history significant for COPD, asthma, restless leg syndrome, unspecified bipolar disorder, schizophrenia, hypertension, history of inguinal hernia,history of hepatitis C, who presents because of shortness of breath. Patient states having shortness of breath going on for last 2 weeks. Coughing and spitting up stuff. Using a lot of albuterol inhalers. Today was having a lot of trouble breathing and [facility] gave neb treatments and Solu-Medrol and called EMS .For EMS was saturating only in 80's on 100% nonrebreather and was placed on CPAP and brought to the ER. Currently in the ER patient seems comfortable on BiPAP. Able to give his history. Denies any headache. States vision is okay. No earaches. Has some runny nose. Is coughing up a lot. Denies fevers. Feels his chest is very tight like someone sitting on it. No nausea. No abdominal pain. Normal bowel and bladder movements. Past medical history. As mentioned above Past surgical history. States he had some kind of chest surgery for his lungs. Social history. States he smoked 2 to 3 packs a day starting at age 15 and quit about 5 years ago. No alcohol use. Family history. Father had CABG and [place]. Admission Exam Per Admitting Provider General- Not in acute distress Head- atraumatic Eyes- PERRL. ENT- oropharynx clear Neck- supple, no JVD. Lungs- clear to auscultation b/l rhonchi and wheezing heard. Heart- regular rate and rhythm; no murmur, no gallop. Abdomen- normal bowel sounds, soft, nontender, no distension. Extremities- no pretibial edema, no erythema seen Neuro- alert, oriented PERRL, no facial palsy; no dysarthria; moves extremities Principal Diagnosis COPD exacerbation Enterorhinovirus URTI Discharge Exam General- Not in acute distress, On 4 L nasal cannula. Head- atraumatic Eyes- PERRL. ENT- oropharynx clear Neck- supple, no JVD. Lungs- b/l rhonchi and wheezing heard. in improving trend. wheezing minimal today. Heart- regular rate and rhythm; .no murmur, no gallop. Abdomen- normal bowel sounds, soft, nontender, no distension. Extremities- no pretibial edema, no erythema seen Neuro- alert, oriented PERRL, no facial palsy; no dysarthria; moves extremities Discharge Data Allergies Allergy/AdvReac Type Severity Reaction Status Date / Time haloperidol [From Haldol] Allergy Difficulty Verified 11/13/23 02:34 Breathing penicillin G benzathine Allergy Unknown Verified 11/13/23 02:52 sodium chloride Allergy Unknown Verified 11/13/23 02:52 [From Letcher Nasal] Consultations 06/17/24 23:51 ED Decision to Admit Stat 06/21/24 09:32 Consult Pulmonology Routine Ordered Studies 06/17/24 21:12 CT angio chest PE protocol Stat Hospital Course (1) COPD exacerbation: 63-year-old male coming from [facility] with past medical history significant for COPD, asthma, restless leg syndrome, unspecified bipolar disorder, schizophrenia, hypertension, history of inguinal hernia,history of hepatitis C, who presents because of shortness of breath. Patient states having shortness of breath going on for last 2 weeks. Coughing and spitting up stuff. Using a lot of albuterol inhalers. Came into the ED because he was having a lot of trouble breathing and [facility] gave neb treatments and Solu- Medrol and called EMS .For EMS was saturating only in 80's on 100% nonrebreather and was placed on CPAP and brought to the ER. Patient denied fever, reported cough with scant whitish sputum. He was managed for the following: COPD exacerbation VBG okay, came in w/ increased cough, wheezing. Admitting chest imaging reviewed. Procal neg ECHO 06/21 reviewed. s/p azithro course, Pulchaya baez dc on prednisone and trelegy inh Wheezing crackles b/l -gradual improvement on 4L NC O2, wean as ranjan incentive spirometer and flutter valve. c/w mucinex Appreciate pulm recs. Signed out to [facility]ER at [facility] on the day of discharge. Enterorhinovirus URTI Possible cause of COPD exacerbation Droplet precautions Supportive care Elevated lactic acid: Lactic acid 2.5. Mostly from hypoxia. c/w ivf and O2 supplementation. lactic acid trended down. Chest tightness: mostly from copd. Trop x2 better. Improved w/ nebs and steroid. Restless leg syndrome: On ropinirole Hypertension: On amlodipine and hydrochlorothiazide. Will monitor History of bipolar disorder/Schizophrenia: Continue home medications DVT prophylaxis: Lovenox Disposition: Telemetry Full code Patient is being discharged back to [facility] with following instruction at the point of discharge: Follow-up with your primary care physician within a week time and likely you will need labs CBC/CMP/magnesium/phosphorus. You were evaluated for COPD exacerbation, lung doctor evaluated you. You completed course of azithromycin antibiotic. You will be discharged on Nasal [place]ula oxygen to maintain saturation of 89 to 92%and Trelegy inhaler. You will be discharged on tapering dose of prednisone. You will benefit from lung function test, coordinate with your primary provider to set up the test in about 6 weeks time. Take your medications as prescribed. Please make sure that you are able to get your medications today by calling your pharmacy before you leave the hospital so that your treatment continuity is not broken. Home Health Attestation I certify that this patient is under my care and that I, or a physicians document control assistant working with me, had a face to-face encounter that meets the home health [id number] encounter requirements with this patient. The encounter with the patient was in whole, or in part, for the following medical condition, which is the primary reason for home health care (list medical condition): I certify that, based on my findings, the following services are medically necessary home health services: My clinical findings support the need for the above services because: Further, I certify that my clinical findings support that this patient is homebound (i.e. absences from home require considerable and taxing effort and are for medical reasons or denominational services or infrequently or of short dur ation when for other reasons) because: Certification for Home Health Services: Based on the above findings, I certify that this patient is confined to the home and needs intermittent chcf care, physical therapy and/or speech therapy or continues to need occupational therapy. The patient is under my care, and I have initiated the establishment of the plan of care. This patient will be followed by a physician who will periodically review the plan of care. Total Time Total Time Spent Total Time Spent (In Minutes): 45 Discharge Plan Discharge Items [facility]position[facility] Reason For Visit: COPD EXACERBATION Discharge Diagnosis: COPD exacerbation Enterorhinovirus URTI Activity: Resume your previous activity Non-emergency contact: Primary Care Provider Call non-emergency contact if: you have any medication questions, your symptoms worsen and your temperature is above 101 Follow-up/Referrals: Gerardo MORENO [Primary Care Provider] - Diet: Heart Healthy Addtl Attending Provider Instructions: Follow-up with your primary care physician within a week time and likely you will need labs CBC/CMP/magnesium/phosphorus. You were evaluated for COPD exacerbation, lung doctor evaluated you. You co mpleted course of azithromycin antibiotic. You will be discharged on Nasal [place] oxygen to maintain saturation of 89 to 92%and Trelegy inhaler. You will be discharged on tapering dose of prednisone. You will benefit from lung function test, coordinate with your primary provider to set up the test in about 6 weeks time. Take your medications as prescribed. Please make sure that you are able to get your medications today by calling your pharmacy before you leave the hospital so that your treatment continuity is not broken. Pending Studies at Discharge: No Stand-Alone Forms: My [facility] Skilled Items Patient informed of condition?: Yes Discharge Level of Care: Other Communicable Disease: No Discharge Prognosis: Stable Lines: None Urinary Catheter: No Medications and DC Order Prescriptions: New pantoprazole 40 mg Tablet,Delayed Release (Dr/Ec) 40 mg PO DAILY 7 Days Qty: 7 0RF prednisone 10 mg tablet 10 mg PO UD Qty: 20 0RF Rx Instructions: 40 mg daily x 3 days, 20 mg daily x 4 days. then stop. guaifenesin [Mucinex] 600 mg Tablet Extended Release 12hr 1,200 mg PO Q12 5 Days Qty: 20 0RF Trelegy Ellipta 200-62.5-25 mcg blister with device 1 inh inhalation DAILY Qty: 60 0RF Continued amlodipine 10 mg Tablet 10 mg PO HS aspirin [Aspirin For Children] 81 mg Tablet,Chewable 81 mg PO HS hydrochlorothiazide 25 mg Tablet 25 mg PO QPM ropinirole 1 mg Tablet 1 mg PO HS Rx Instructions: administer 1-3 hours before bedtime albuterol sulfate 90 mcg/actuation Hfa Aerosol Inhaler 2 puff INHALATION QID PRN (Reason: Shortness Of Breath) citalopram 10 mg Tablet 10 mg PO HS amantadine HCl 100 mg Capsule 100 mg PO HS Discontinued Incruse Ellipta 62.5 mcg/actuation Blister With Device 1 inh INHALATION DAILY fluticasone propion-salmeterol 250-50 mcg/dose Blister With Device 1 inh INHALATION BID prednisone 10 mg Tablet 50 mg PO DAILY Rx Instructions: start 06/18/24 stop 06/22/24 azithromycin 250 mg Tablet 250 mg PO DAILY Rx Instructions: start 06/18/24 end 06/21/24 Discharge Orders: Discharge Order (Routine); Ordered 06/25/24 Ordered By: Suyapa Julio Admission Data Admit Date/Time: 06/18/24 01:50 Attending Provider: Suyapa Julio Admit Provider: Isaias Medrano Primary Care Provider: Gerardo MORENO Other Providers: Isaias Medrano; Mor Olivo; Dion Hager; Henry West; Diego Norton; Sabiha Roque; Cally Tinsley; Arnaud Henderson; Guillermo Oshea; Nereyda Bryant
[2024-06-25 11:12] VITALS: BP 150/98
== END 2024-06-25 11:59 | DRG 190 ==
LOC: ED 20:38 → 2E 06-18 01:50